=== PATIENT | female | born 1950 | race Caucasian/White ===

== ENCOUNTER → 2016-11-01 | Outpatient (CLI) | payer MEDICARE, BC ==
[2016-11-01 16:00] LABS: Basophils # (A) 0.1 k/uL (0-0.2); Basophils % (A) 1 %; CH 28.8; CHCM 32.1; Eosinophils # (A) 0.2 k/uL (0-0.7); Eosinophils % (A) 2 %; HCT 44.6 % (34.0-46.0); HDW 2.26; HGB 14.3 gm/dL (11.4-16.0); Luc # (Auto) 0.17; Luc % (Auto) 2; Lymphocytes # (A) 1.6 k/uL (1.0-4.8); Lymphocytes % (A) 19 %; MCH 28.8 pg (25.0-35.0); Mean Platelet Volume 7.1; Monocytes # (A) 0.4 k/uL (0-1.0); Monocytes % (A) 5 %; Neutrophils # (A) 6.3 k/uL (1.3-7.7); Neutrophils % (A) 72 %; RBC 4.95 m/uL (3.80-5.40); RDW 13.1 % (11.5-15.5); WBC 8.7 k/uL (3.8-10.6); WBC (Perox) 8.69
[2016-11-01 16:03] LABS: Prothrombin Time 10.4 sec (9.0-12.0)
[2016-11-01 16:04] LABS: Potassium 4.4 mmol/L (3.5-5.1)
== END | disposition home or self-care (01) ==
LOC: LABPAT 14:17
PROVIDERS: ATTEND Orthopaedic Surgery
DX: Z01.812 Encounter for preprocedural laboratory examination (principal); Z79.01 Long term (current) use of anticoagulants
CPT/HCPCS: 80051; 85025; 85610; 85730; 86850; 86900; 86901; 87070

== ENCOUNTER 2016-11-07 08:31 | Inpatient (IN) | payer MEDICARE, BC ==
[2016-10-31 16:53] VITALS: BMI 28.0
--- NOTE | 2016-11-06 18:08 | HP ---
DATE OF ADMISSION: REASON FOR ADMISSION: Surgery is scheduled for 11/07/2016 Nicolasa Hernandez is a 65-year-old patient seen with symptomatic right hip osteoarthritis. After having treatment options discussed, she elected to proceed with direct anterior right total hip arthroplasty. Consent was obtained. Medical clearance provided Dr. Taylor. Past medical history is hypothyroidism. Past surgical history is tonsillectomy, thyroidectomy. Daily medications: 1. Levothyroxine. 2. Motrin. ALLERGIES: PENICILLIN. SOCIAL HISTORY: Patient denies tobacco use. Physical evaluation of the right hip there is a limited range of motion with severe pain, diffuse tenderness diffuse weakness, positive hip impingement sign. Straight-leg raise is negative. Distal neurovascular exam is intact. Radiographs of the right hip reveal severe osteoarthritis. IMPRESSION: Right hip osteoarthritis. PLAN: Direct anterior right total hip arthroplasty.
[~2016-11-07 08:31] MED LIST: ACETAMINOPHEN TAB 500 MG TAB PO ONE; CLINDAMYCIN 900 MG in DEXTROSE 5% IN WATER 50 ML IVPB ONE; DEXAMETHASONE SOD PHOSPHATE 10 MG/ML 1 ML VIAL IV ONE; HYDROmorphone 1 MG/ML 1 ML SYRINGE IVP PRN; MELOXICAM 7.5 MG TAB PO ONE; MIDAZOLAM 2 MG/2 ML VIAL IV PRN; ONDANSETRON 4 MG/2 ML VIAL IVP ONE; TRANEXAMIC ACID 1,000 MG in SODIUM CHLORIDE 0.9% 100 ML IVPB ONE
[2016-11-07] MEDS: LACTATED RINGERS 1,000 ML IV SCH ×2 (09:16→17:36)
[2016-11-07] MEDS ORDERED: LIDOCAINE 1% 20 ML VIAL (10MG/ML) FOR IV START INTRADERMA ONE (09:16)
[2016-11-07] MEDS ORDERED: ROPIVACAINE 246.25 MG, EPINEPHrine 0.5 MG, KETOROLAC 30 MG, cloNIDine HCL/PF 80 MCG, WA... MISCELLANE ONE ×5 (09:47)
[2016-11-07] MEDS ORDERED: MIDAZOLAM 2 MG/2 ML VIAL ONE (10:15)
[2016-11-07] MEDS ORDERED: fentaNYL (PF) 50 MCG/ML 2 ML AMP ONE (10:15)
[2016-11-07] MEDS ORDERED: SODIUM CHLORIDE 0.9% 100 ML BAG ONE (10:15)
[2016-11-07] MEDS ORDERED: TRANEXAMIC ACID 1,000 MG/10 ML VIAL ONE (10:15)
[2016-11-07] MEDS ORDERED: PROPOFOL 10 MG/ML 20 ML VIAL IV ONE (10:15)
[2016-11-07] MEDS ORDERED: CLINDAMYCIN 1,800 MG in SODIUM CHLORIDE 0.9% IRRIGATIO 3,000 ML IRRIGATION ONE (10:42)
[2016-11-07] MEDS ORDERED: LACTATED RINGERS 1,000 ML IV ONE (10:45)
--- NOTE | 2016-11-07 12:42 | FL ---
EXAMINATION TYPE: FL guidance operating room DATE OF EXAM: 11/07/2016 12:38 PM HISTORY: Flouroscopy time 51 seconds of fluoroscopy provided. IMPRESSION: 1. Fluoroscopy time.
--- NOTE | 2016-11-07 12:42 | XR ---
EXAMINATION TYPE: XR Hip Limited RT DATE OF EXAM: 11/07/2016 12:38 PM COMPARISON: NONE HISTORY: Postsurgical change TECHNIQUE: One view submitted. FINDINGS: There is a prosthetic hip in near anatomic alignment. There is soft tissue edema and emphysema. IMPRESSION: 1. Postoperative change. Appears in near-anatomic alignment.
--- NOTE | 2016-11-07 12:49 | P.OP ---
Date of Procedure: 11/07/16 Preoperative Diagnosis: Right hip osteoarthritis Postoperative Diagnosis: Right hip osteoarthritis Procedure(s) Performed: Direct anterior right total hip arthroplasty Implants: 1. Depuy Corail KA size 15 cementless femoral stem with collar 2. Depuy pinnacle 60 mm acetabular shell 3. Depuy pinnacle polyethylene acetabular liner +4 10 36 mm ID 60 mm OD 4. Biolox delta ceramic femoral head +8.5 36 mm 5. 2-6.5x20 mm cancellous bone screws Anesthesia: local, spinal Surgeon: Phi Monte Watch Leader #1: Arnaldo Ashraf Estimated Blood Loss (ml): 250 Pathology: other (Femoral head) Condition: stable Disposition: PACU Indications for Procedure: 66-year-old patient seen with symptomatic right hip osteoarthritis. After having treatment options discussed, she elected to proceed with total hip arthroplasty. Operative Findings: See description of procedure Description of Procedure: The patient was taken to the operative suite. Patient underwent a spinal anesthetic by the department of anesthesia. Patient was then transferred to the [place] table. Patient was given preoperative IV antibiotics and TXA. Both lower extremities were placed in standard leg spars. The hip was then prepped and draped in the normal sterile orthopedic fashion. A standard anterior incision was made beginning 3 cm lateral and 1 cm distal to the ASIS extending 10 cm. Dissection was then carried down through the subcutaneous soft tissues down to the fascia overlying the tensor fascia chrystal. An incision was now made through the fascia. Careful dissection was taken down exposing the tensor fascia chrystal muscle. A Cobra retractor was now placed along the medial femoral neck and a second one along the lateral femoral neck. The venous circumflex vessels were now identified, cauterized and clipped. We identified the anterior hip capsule. An incision was made through the hip capsule along the lateral border. Tag sutures were then placed along the anterior capsule and lateral capsule. We then performed a capsulotomy. Retractors were now placed around the femoral neck itself. A Cobra retractor was now placed along the anterior acetabulum. Good exposure was now noted of the femoral head/neck complex. Residual labrum was debrided out. We placed the extremity into 3 turns of fine traction. We were then able to introduce a skid in between the femoral head and acetabulum. A placed a awl into the femoral head. We took 2 turns of traction off the extremity. Rotation was now released. The femoral head was then dislocated without difficulty. Additional releasing was performed of the capsule. The head was then reduced. All traction was released. A femoral neck cut was now made with a sagittal saw. It was completed with an osteotome at the lateral neck area. The femoral head was now removed without difficulty. There was advanced osteoarthritis of both femoral head and acetabulum. The extremity was now rotated to 60 of external rotation. It was locked in position. Residual labrum was now debrided out. Serial reaming was performed of the acetabulum. Once we reached the appropriate size and a trial was position and fit nicely. The appropriate size was now chosen opened and made available. The wound was irrigated with pulse lavage mechanical irrigation. It was introduced into the acetabulum without difficulty. The C-arm/fluoroscopy was now brought into the operative field. We made sure we had a true AP pelvic view. We now under direct C-arm/ fluoroscopy introduced into the acetabular component with appropriate version and inclination. It was well seated and stable. The C-arm was pulled back. An appropriate liner was introduced and clicked into position. It was felt to be stable. At this point retractors were removed. The extremity was now placed into 125 external rotation with no traction. The leg was now dropped to the ground and adducted. Appropriate retractors were now positioned along the proximal femur. We also placed our femoral look into position. Additional capsular releasing was performed to gain access to the proximal femur. We now used a box osteotome. A canal finder was now utilized. Serial broaching was now performed until we reached the appropriate size with good overall rotational stability. Appropriate calcar planing was performed. A trial head/ neck was placed into position. The hip was now reduced. The C-arm/fluoroscopy was brought back into the operative field. A spot film was obtained of the nonoperative hip. A spot film was obtained of the trial components. There was some diminished offset of the prosthesis. At this point the trial components were removed. We gained visualization of the acetabulum and removed our liner. I replaced the liner with a +4 10 offset. At this point trial stem was repaired as additional as well as the trial head and the hip was again reduced. We obtained the C-arm and image. Overlays were performed, we noted good overall alignment and positioning for determining leg length. The C-arm/ fluoroscopy was pulled back. Retractors were repositioned and the hip was dislocated. The leg was again taken down to the ground and adducted. Appropriate retractors were repositioned as well as the femoral hook. All trial components were removed. The wound was irrigated with pulse lavage mechanical irrigation. The deep soft tissues were infiltrated with local analgesic. The femoral implant was opened along with the femoral head. The femoral implant was introduced with good purchase and fixation noted. The femoral head was introduced with good positioning and fixation noted. Retractors were now removed. The hip was now reduced. There appeared be good positioning of the hip. A spot film was obtained to document that. The superficial soft tissues were infiltrated with local analgesic. Bipolar cautery had been utilized intermittently through the procedure for hemostasis. The wound was irrigated copiously with pulse lavage mechanical irrigation. The fascia was repaired with Vicryl suture. The subcutaneous soft tissues were repaired in layers with Vicryl suture. The skin was approximated with pernio/ Dermabond. Sterile dressings were applied. Patient was then awakened, transferred to a bed and taken to recovery in stable condition. Puneet LAWSON assisted with the procedure.
[2016-11-07] MEDS ORDERED: HYDROcodone/APAP 10-325MG 1 EACH TAB PO PRN ×2 (12:50)
[2016-11-07] MEDS ORDERED: HYDROmorphone 1 MG/ML 1 ML SYRINGE IVP PRN ×3 (12:50)
[2016-11-07] MEDS ORDERED: ONDANSETRON 4 MG/2 ML VIAL IVP PRN (12:50)
[2016-11-07] MEDS ORDERED: NALOXONE 0.4 MG/ML 1 ML VIAL IV PRN (12:50)
[2016-11-07] MEDS ORDERED: TEMAZEPAM 15 MG CAP PO PRN (12:50)
[2016-11-07] MEDS ORDERED: hydrOXYzine PAMOATE 25 MG CAP PO PRN (12:50)
[2016-11-07] MEDS ORDERED: ALBUTEROL NEBULIZED 2.5 MG/3 ML INHALATION PRN (14:50)
[2016-11-07] MEDS ORDERED: MONTELUKAST 10 MG TAB PO PRN (14:50)
[2016-11-07] MEDS ORDERED: BUDESONIDE 0.5 MG/2 ML NEBU INHALATION PRN (14:50)
--- NOTE | 2016-11-07 15:12 | P.CONS ---
History of Present Illness - Reason for Consult Consult date: 11/07/16 Medical management Requesting physician: Phi Monte - Chief Complaint Status post right total hip arthroplasty - History of Present Illness This is a 66-year-old female, patient of Dr. Taylor. She has known right hip osteoarthritis, seasonal asthma and hypothyroidism secondary to thyroid cancer requiring a thyroidectomy. Patient presents to the hospital today to undergo a right total hip arthroplasty. She is postop day #0. Tolerated surgery well. Estimated blood loss 250 mL. Patient has no complaints. Pain is controlled. Denies any chest pain, shortness of breath, nausea or vomiting, bowel movement changes or urinary symptoms. She does complain of some mild wheezing and feeling a little raspy due to her asthma. She has been using her nebulizer machine throughout the day since coming back from [place]. She usually only takes the albuterol and Pulmicort nebulizer treatments as needed. She denies any cough fever or chills or sweats. Review of Systems Please refer to HPI otherwise unremarkable Past Medical History Past Medical History: Asthma, Cancer, Osteoarthritis (OA), Skin Disorder, Thyroid Disorder Additional Past Medical History / Comment(s): OCC Excema. Hx Thyroid Cancer. Using a walker, Has a cane. History of Any Multi-Drug Resistant Organisms: None Reported Past Surgical History: Joint Replacement, Tonsillectomy Additional Past Surgical History / Comment(s): 05/02/16 Total L Hip Arthroplasty. Thyroidectomy Past Anesthesia/Blood Transfusion Reactions: No Reported Reaction, Family History of Problems w/ Anesthesia Additional Past Anesthesia/Blood Transfusion Reaction / Comm: FATHER - POSS PONV. Past Psychological History: No Psychological Hx Reported Additional Psychological History / Comment(s): Pt resides alone. She uses a walker to ambulate. She has not been driving recently. Smoking Status: Former smoker Past Alcohol Use History: Occasional Additional Past Alcohol Use History / Comment(s): Quit smoking 35 yrs ago, smoked for 16 yrs- 2 PPD Past Drug Use History: None Reported - Past Family History Sister(s) Family Medical History: Cancer Father Family Medical History: Cancer Medications and Allergies Home Medications Medication Instructions Recorded Confirmed Type Cetirizine HCl [Zyrtec] 10 mg PO DAILY 04/11/16 11/07/16 History Levothyroxine Sodium [Synthroid] 125 mcg PO DAILY 04/11/16 11/07/16 History Acetaminophen Tab [Tylenol Tab] 1,000 mg PO Q6H PRN 04/26/16 11/07/16 History Fluticasone/Salmeterol [Advair 1 puff INHALATION RT-BID PRN 04/26/16 11/07/16 History 250-50 Diskus] Albuterol Nebulized [Ventolin 2.5 mg INHALATION RT-BID PRN 10/31/16 11/07/16 History Nebulized] Budesonide [Pulmicort] 0.5 mg INHALATION RT-BID PRN 10/31/16 11/07/16 History EPINEPHrine (Auto Inject) [Epipen] 0.3 mg IM ONCE PRN 10/31/16 11/07/16 History Ibuprofen [Motrin] 600 mg PO Q6HR PRN 10/31/16 11/07/16 History Montelukast [Singulair] 10 mg PO DAILY PRN 10/31/16 11/07/16 History Tiotropium 18 Mcg/Puff [Spiriva] 1 cap INHALATION RT-DAILY 10/31/16 11/07/16 History diphenhydrAMINE [Benadryl] 25 - 50 mg PO DIRECTED PRN 10/31/16 11/07/16 History Allergies Allergy/AdvReac Type Severity Reaction Status Date / Time Penicillins Allergy SOB,hives Verified 11/07/16 09:04 BEE STING Allergy Anaphylaxis Uncoded 11/07/16 09:04 Physical Exam Vitals: Vital Signs Temp Pulse Resp BP Pulse Ox 11/07/16 14:01 68 16 112/64 97 11/07/16 13:46 70 16 108/65 99 11/07/16 13:33 69 16 107/65 98 11/07/16 13:15 73 16 108/66 99 11/07/16 13:08 97.0 F L 79 14 104/60 94 L 11/07/16 08:47 98.2 F 73 16 114/63 97 Intake and Output 11/07/16 11/07/16 11/07/16 06:59 14:59 22:59 Intake Total 1807 Output Total 250 Balance 1557 Intake: IV 1807 Output: Urine 150 Estimated Blood Loss 100 Head normocephalic Neck supple Lungs faint wheeze on the left with a coarse breath sound improvement with cough Heart regular rate and rhythm S1-S2, no rub or gallop Abdomen is soft nontender nondistended positive bowel sounds no hepatosplenomegaly Extremities no edema. Right hip dressing clean dry and intact. +2 dorsalis pedis pulse Neuro alert and orientated to 3 Assessment and Plan Plan: 1. Osteoarthritis of the right hip status post right total hip arthroplasty. Postop day #0. Estimated blood loss 250 mL. Continue pain control with Olar and Dilaudid as needed. Continue DVT prophylaxis with subcu Lovenox 2. Seasonal asthma: Patient does have some mild wheezing. We'll resume her albuterol and Pulmicort nebulizer treatments. We'll change them from as needed to scheduled. Check chest x-ray 3. Hypothyroidism with known history of thyroid cancer status post thyroidectomy. Continue Synthroid GI prophylaxis Pepcid and DVT prophylaxis Lovenox Check CBC and CMP Thank you for this consultation. We will continue to follow along with you. Time with Patient: Greater than 30 (Greater than 50% of the total time spent in counseling and coordination of care.I performed an examination of the patient and discussed their management with the physician Headrig Sawyer. I have reviewed the Physician Headrig Sawyer's notes and agree with the documented findings and plan of care)
[2016-11-07 15:56] LABS: Basophils % (A) 0 %; CH 28.8; CHCM 32.7; Eosinophils % (A) 0 %; HCT 40.6 % (34.0-46.0); HDW 2.44; HGB 13.8 gm/dL (11.4-16.0); Luc # (Auto) 0.04; Luc % (Auto) 0; Lymphocytes # (A) 0.4 k/uL (1.0-4.8); Lymphocytes % (A) 3 %; MCHC 33.9 g/dL (31.0-37.0); MCV 88.5 fL (80.0-100.0); Mean Platelet Volume 6.8; Monocytes # (A) 0.2 k/uL (0-1.0); Monocytes % (A) 2 %; Neutrophils # (A) 12.7 k/uL (1.3-7.7); Neutrophils % (A) 95 %; RBC 4.59 m/uL (3.80-5.40); RDW 12.6 % (11.5-15.5); WBC 13.4 k/uL (3.8-10.6); WBC (Perox) 14.01
[2016-11-07 16:05] LABS: ALT 38 U/L (9-52); AST 36 U/L (14-36); Alkaline Phosphatase 102 U/L (38-126); Anion Gap 5 mmol/L; Blood Urea Nitrogen 15 mg/dL (7-17); Calcium 8.6 mg/dL (8.4-10.2); Carbon Dioxide 30 mmol/L (22-30); Chloride 103 mmol/L (98-107); Glucose 184 mg/dL (74-99); Non-African American GFR(MDRD) >60 (>60 ml/min/1.73 sqM); Sodium 138 mmol/L (137-145); Total Bilirubin 0.9 mg/dL (0.2-1.3); Total Protein 5.9 g/dL (6.3-8.2)
--- NOTE | 2016-11-07 16:30 | P.DS ---
Providers Date of admission: 11/07/16 08:31 Expected date of discharge: 11/08/16 Attending physician: Phi Monte Consults: 11/07/16 12:50 Consult Physician Routine Consulting Provider: Chito Hernandez Consult Reason/Comments: Medical management Do you want consulting provider notified?: Yes Primary care physician: Stated None Hospital Course: Date of admission: 11/07/2016 Date of discharge: 11/08/2016 Admission diagnosis: Status post direct anterior right total hip arthroplasty Discharge diagnosis: Same Attending physician: Dr. Monte Surgical procedures: Direct anterior right total hip arthroplasty Brief history: Patient is a 66-year-old female with a history of progressive primary right hip osteoarthritis. At this point patient has failed conservative treatment measures and has opted to proceed with a elective right total hip arthroplasty. Hospital course: Details of patient's surgery can be found in operative report. Patient tolerated the procedure well and was subsequently transported to orthopedic floor. Patient's orthopeidc and medical care was provided daily. Patient had daily laboratory tests performed for evaluation of overall blood counts. Patient had daily physical therapy to include strengthening range of motion as well as education with walker ambulation. Patient was treated with Lovenox for their postoperative DVT prophylaxis during their inpatient stay. Patient was noted to have a relatively uneventful postoperative course. Patient reported satisfactory pain control with oral pain medications by postoperative day 0. Patient showed satisfactory progress with physical therapy. Patient moved steadily through the program and had no difficulty meeting the goals by postoperative day 1. Given patient's otherwise satisfactory course and having met physical therapy goals, plan is to discharge patient home on postoperative day 1. Discharge condition/disposition: Patient will be discharged home in stable condition. Discharge medications: Instructions are given on resumption of patient's normal daily medications per primary care recommendation, in addition patient will be prescribed [place] 7.5 mg/325 mg, tramadol 50 mg, Colace 100 mg, Pepcid 20 mg, aspirin. Discharge instructions: 1. Wound care and infection precautions, keep incision dry and covered while showering, no lotions, creams, moisturizers. No soaking, tubs, pools, hottubs. Do not scrub over the incision. 2. Weight-bear as tolerated with walker / cane until follow-up. 3. Ice and elevate when necessary. Do not exceed 20 minutes per hour with ice pack. 4. Utilize compression sleeve until seen at first follow up appointment. 5. Visiting nursing care. 6. Home physical therapy. 7. Pain meds and anticoagulants per prescription. 8. Pain medication has potential to cause constipation. Increase oral fluid and fiber intake. Contact primary care provider if you have not had a bowel movement within 48 hours after discharge 9. No anti-inflammatory medication until discussed at first post operative visit, this including Motrin, Aleve, Mobic, Diclofenac. 10. Follow up in office at 2 weeks postop with Puneet Ashraf PA-C 11. Follow up with your primary care doctor 7-10 days after discharge. 12. Contact [facility] with any questions, . Procedures: Right total hip arthroplasty Patient Condition at Discharge: Good Plan - Discharge Summary New Discharge Prescriptions: Aspirin 325 mg PO BID #60 tab Docusate [Colace] 100 mg PO DAILY #30 capsule Famotidine [Pepcid] 20 mg PO DAILY #30 tablet HYDROcodone/APAP 7.5-325MG [[place] 7.5] 1 - 2 each PO Q6HR PRN #40 tab PRN Reason: Pain traMADol HCl [Ultram] 50 mg PO Q6H PRN #40 tab PRN Reason: Pain Discharge Medication List Cetirizine HCl [Zyrtec] 10 mg PO DAILY 04/11/16 [History] Levothyroxine Sodium [Synthroid] 125 mcg PO DAILY 04/11/16 [History] Acetaminophen Tab [Tylenol Tab] 1,000 mg PO Q6H PRN 04/26/16 [History] Fluticasone/Salmeterol [Advair 250-50 Diskus] 1 puff INHALATION RT-BID 04/26/16 [History] Albuterol Nebulized [Ventolin Nebulized] 2.5 mg INHALATION RT-BID PRN 10/31/16 [ History] Budesonide [Pulmicort] 0.5 mg INHALATION RT-BID 10/31/16 [History] EPINEPHrine (Auto Inject) [Epipen] 0.3 mg IM ONCE PRN 10/31/16 [History] Montelukast [Singulair] 10 mg PO DAILY PRN 10/31/16 [History] Tiotropium 18 Mcg/Puff [Spiriva] 1 cap INHALATION RT-DAILY 10/31/16 [History] diphenhydrAMINE [Benadryl] 25 - 50 mg PO Q6H PRN 10/31/16 [History] Aspirin 325 mg PO BID #60 tab 11/08/16 [Rx] Docusate [Colace] 100 mg PO DAILY #30 capsule 11/08/16 [Rx] Famotidine [Pepcid] 20 mg PO DAILY #30 tablet 11/08/16 [Rx] HYDROcodone/APAP 7.5-325MG [[place] 7.5] 1 - 2 each PO Q6HR PRN #40 tab 11/08/16 [ Rx] traMADol HCl [Ultram] 50 mg PO Q6H PRN #40 tab 11/08/16 [Rx] Follow up Appointment(s)/Referral(s): Arnaldo Ashraf PAC [PHYSICIAN SAFETY AND HEALTH MANAGER] - 11/23/16 1:50 pm Activity/Diet/Wound Care/Special Instructions: Orthopedic Discharge Instructions: 1. Wound care and infection precautions, keep incision dry and covered while showering, no lotions, creams, moisturizers. No soaking, pools, hot tubs. Do not scrub over incision. 2. Weight-bear as tolerated with walker / cane until follow-up. 3. Ice and elevate when necessary. Do not exceed 20 minutes per hour with ice pack. 4. Utilize compression sleeve until seen at first follow up appointment. 5. Visiting nursing care. 6. Home physical therapy. 7. Pain meds and anticoagulants per prescription. 8. Pain medication has potential to cause constipation. Increase oral fluid and fiber intake. Contact primary care provider if you have not had a bowel movement within 48 hours after discharge. 9. No anti-inflammatory medication until discussed at first post operative visit, this including Motrin, Aleve, Mobic, Diclofenac. 10. Follow up in office at 2 weeks postop with Puneet Ashraf PA-C 11. Follow up with your primary care doctor 7-10 days after discharge. 12. Contact [facility] with any questions, . Discharge Disposition: HOME WITH HOME HEALTH SERVICES
[2016-11-07] MEDS: ALBUTEROL NEBULIZED 2.5 MG/3 ML INHALATION SCH ×2 (17:00→19:57)
--- NOTE | 2016-11-07 17:04 | XR ---
EXAMINATION TYPE: XR chest 1V portable DATE OF EXAM: 11/07/2016 4:57 PM Comparison: 05/02/2016 Clinical History: 66-year-old female with wheezing. Hip replacement earlier today. Findings: Heart is normal size. Atherosclerotic arch calcifications. Mild diffuse interstitial prominence, unch anged. No consolidation or pleural effusion. Impression: Chronic changes, possible chronic bronchitis/asthma. Otherwise, no acute process seen.
[2016-11-07] MEDS: traMADol 50 MG TAB PO SCH ×3 (17:50→22:20)
[2016-11-07] MEDS: CLINDAMYCIN 900 MG in DEXTROSE 5% IN WATER 50 ML IVPB SCH ×4 (17:50→23:33)
[2016-11-07] MEDS: BUDESONIDE 0.5 MG/2 ML NEBU INHALATION SCH (19:58)
[2016-11-07] MEDS: SYMBICORT 80-4.5 MCG INHALER INHALATION SCH (19:58)
[2016-11-07] MEDS ORDERED: SENNOSIDES-DOCUSATE SODIUM 1 EACH TAB PO SCH (21:00)
[2016-11-08 03:55] VITALS: RESP 16
[2016-11-08] MEDS: LACTATED RINGERS 1,000 ML IV SCH ×2 (04:21→07:33)
[2016-11-08] MEDS ORDERED: LEVOTHYROXINE 125 MCG TAB PO SCH (06:30)
[2016-11-08 07:21] LABS: Basophils % (A) 0 %; CH 28.9; CHCM 32.3; Eosinophils % (A) 0 %; HCT 35.3 % (34.0-46.0); HDW 2.23; HGB 11.2 gm/dL (11.4-16.0); Luc # (Auto) 0.14; Luc % (Auto) 1; Lymphocytes # (A) 1.1 k/uL (1.0-4.8); Lymphocytes % (A) 12 %; MCH 28.7 pg (25.0-35.0); MCHC 31.8 g/dL (31.0-37.0); Mean Platelet Volume 7.1; Monocytes # (A) 0.5 k/uL (0-1.0); Monocytes % (A) 5 %; Neutrophils # (A) 8.1 k/uL (1.3-7.7); Neutrophils % (A) 82 %; RBC 3.92 m/uL (3.80-5.40); RDW 12.9 % (11.5-15.5); WBC 9.9 k/uL (3.8-10.6)
[2016-11-08 07:48] LABS: ALT 40 U/L (9-52); AST 45 U/L (14-36); Alkaline Phosphatase 83 U/L (38-126); Anion Gap 4 mmol/L; Blood Urea Nitrogen 15 mg/dL (7-17); Calcium 8.4 mg/dL (8.4-10.2); Carbon Dioxide 28 mmol/L (22-30); Chloride 101 mmol/L (98-107); Glucose 113 mg/dL (74-99); Non-African American GFR(MDRD) >60 (>60 ml/min/1.73 sqM); Potassium 4.2 mmol/L (3.5-5.1); Sodium 133 mmol/L (137-145); Total Bilirubin 1.1 mg/dL (0.2-1.3); Total Protein 5.3 g/dL (6.3-8.2)
[2016-11-08 07:50] VITALS: BP 98/56; TEMP 99.4
[2016-11-08] MEDS ORDERED: TIOTROPIUM 18 MCG/PUFF INHALER INHALATION SCH (08:00)
[2016-11-08] MEDS: BUDESONIDE 0.5 MG/2 ML NEBU INHALATION SCH (08:21)
[2016-11-08] MEDS: ALBUTEROL NEBULIZED 2.5 MG/3 ML INHALATION SCH ×2 (08:21→11:23)
[2016-11-08] MEDS: SYMBICORT 80-4.5 MCG INHALER INHALATION SCH (08:21)
[2016-11-08] MEDS ORDERED: LORATADINE 10 MG TAB PO SCH (09:00)
[2016-11-08] MEDS ORDERED: FAMOTIDINE 20 MG TAB PO SCH (09:00)
[2016-11-08] MEDS ORDERED: MELOXICAM 7.5 MG TAB PO SCH (09:00)
[2016-11-08] MEDS ORDERED: MONTELUKAST 10 MG TAB PO SCH (09:00)
[2016-11-08] MEDS ORDERED: ENOXAPARIN 40 MG/0.4 ML SYRINGE SQ SCH (09:00)
[2016-11-08] MEDS: traMADol 50 MG TAB PO SCH ×2 (09:44→13:25)
--- NOTE | 2016-11-08 10:44 | P.PN ---
Subjective Principal diagnosis: Status post right total hip arthroplasty Patient seen today resting in her hospital chair, she appears her comfortable. Her pain is well-controlled at this time. She is ambulating well with therapy, urinary cath was discontinued. She denies any headaches, lightheadedness, chest pain, shortness of breath, fever chills. Objective - Vital Signs Vital signs: Vital Signs Temp 99.4 F 11/08/16 07:49 Pulse 84 11/08/16 08:35 Resp 16 11/08/16 08:00 BP 98/56 11/08/16 07:49 Pulse Ox 94 L 11/08/16 07:49 Intake & Output 11/07/16 11/08/16 11/08/16 18:59 06:59 18:59 Intake Total 1807 1200 250 Output Total 250 600 Balance 1557 600 250 Weight 86.183 kg Intake: IV 1807 Intake, IV Titration 800 Amount Lactated Ringers 1,000 ml 800 @ 80 mls/hr IV .[id number] ERMA Rx#:[id number] Oral 400 250 Output: Urine 150 600 Estimated Blood Loss 100 Other: Voiding Method Indwelling Catheter - Exam Right lower extremity: Incision is clean, dry, and intact. Minimal ecchymosis and swelling present around the hip. Calf is soft, no tenderness with palpation. Plantar flexion, dorsiflexion, EHL, FHL are intact. Sensory exam to light touch throughout the extremities intact, dorsal pedis pulses 2+. - Labs CBC & Chem 7: 11/08/16 06:39 11/08/16 06:39 Labs: Abnormal Lab Results - Last 24 Hours (Table) 11/07/16 11/07/16 11/08/16 Range/Units 15:41 15:41 06:39 WBC 13.4 H (3.8-10.6) k/uL Hgb 11.2 L (11.4-16.0) gm/dL Neutrophils # 12.7 H 8.1 H (1.3-7.7) k/uL Lymphocytes # 0.4 L (1.0-4.8) k/uL Sodium (137-145) mmol/L Glucose 184 H (74-99) mg/dL AST (14-36) U/L Total Protein 5.9 L (6.3-8.2) g/dL Albumin 3.3 L (3.5-5.0) g/dL 11/08/ Range/Units 06:39 WBC (3.8-10.6) k/uL Hgb (11.4-16.0) gm/dL Neutrophils # (1.3-7.7) k/uL Lymphocytes # (1.0-4.8) k/uL Sodium 133 L (137-145) mmol/L Glucose 113 H (74-99) mg/dL AST 45 H (14-36) U/L Total Protein 5.3 L (6.3-8.2) g/dL Albumin 2.9 L (3.5-5.0) g/dL Assessment and Plan Plan: Assessment: 1. Postop day #1 status post right total hip arthroplasty Plan: 1. Pain control, we'll discharge home on oral medication 2. GI and DVT prophylaxis, patient will be discharged home on aspirin 325 mg twice a day 3. Wound care was discussed with patient 4. Home therapy after discharge 5. Medical recommendations 6. Discharge planning: Patient will be discharged home today Time with Patient: Less than 30
[2016-11-08 11:24] VITALS: PULSE 80
[2016-11-08] MEDS ORDERED: MULTIVITAMINS, THERA 1 EACH TAB PO SCH (12:00)
--- NOTE | 2016-11-08 14:35 | P.PN ---
Subjective patient is doing fairly well today. She is looking forward to go home later on. Pain is well controlled. Objective - Vital Signs Vital signs: Vital Signs Temp 99.4 F 11/08/16 07:49 Pulse 80 11/08/16 11:34 Resp 16 11/08/16 08:00 BP 98/56 11/08/16 07:49 Pulse Ox 94 L 11/08/16 07:49 Intake & Output 11/07/16 11/08/16 11/08/16 18:59 06:59 18:59 Intake Total 1807 1200 500 Output Total 250 600 600 Balance 1557 600 -100 Weight 86.183 kg Intake: IV 1807 Intake, IV Titration 800 Amount Lactated Ringers 1,000 ml 800 @ 80 mls/hr IV .[id number] ERMA Rx#:[id number] Oral 400 500 Output: Urine 150 600 600 Estimated Blood Loss 100 Other: Voiding Method Indwelling Catheter - Exam General: The patient is awake and alert, in no distress Eye: there is normal conjunctiva bilaterally. Neck: The neck is supple, there is no JVD. Cardiovascular: Normal S1-S2, no S3-S4, no murmurs. Respiratory: Lungs clear to auscultation bilaterally Gastrointestinal: Abdomen is soft, nontender Musculoskeletal: There is no pedal edema. Neurological:. Speech is normal. Skin: Skin is warm and dry - Labs CBC & Chem 7: 11/08/16 06:39 11/08/16 06:39 Labs: Abnormal Lab Results - Last 24 Hours (Table) 11/07/16 11/07/16 11/08/16 Range/Units 15:41 15:41 06:39 WBC 13.4 H (3.8-10.6) k/uL Hgb 11.2 L (11.4-16.0) gm/dL Neutrophils # 12.7 H 8.1 H (1.3-7.7) k/uL Lymphocytes # 0.4 L (1.0-4.8) k/uL Sodium (137-145) mmol/L Glucose 184 H (74-99) mg/dL AST (14-36) U/L Total Protein 5.9 L (6.3-8.2) g/dL Albumin 3.3 L (3.5-5.0) g/dL 11/08/16 Range/Units 06:39 WBC (3.8-10.6) k/uL Hgb (11.4-16.0) gm/dL Neutrophils # (1.3-7.7) k/uL Lymphocytes # (1.0-4.8) k/uL Sodium 133 L (137-145) mmol/L Glucose 113 H (74-99) mg/dL AST 45 H (14-36) U/L Total Protein 5.3 L (6.3-8.2) g/dL Albumin 2.9 L (3.5-5.0) g/dL Assessment and Plan Plan: 1. Osteoarthritis of the right hip status post right total hip arthroplasty. Postop day #1. Estimated blood loss 250 mL. Continue pain control with Sumner and Dilaudid as needed. 2. mild intermittent asthma with no evidence of exacerbation 3. Hypothyroidism with known history of thyroid cancer status post thyroidectomy. Continue Synthroid patient is cleared for discharge home. Continue home medications
== END 2016-11-08 14:46 | disposition home health service (06) | DRG 470 ==
LOC: 2ORMAIN 08:31 → 3SUR 13:22
PROVIDERS: ADMIT Orthopaedic Surgery; ATTEND Orthopaedic Surgery
PROC: 0SR904A Replacement of Right Hip Joint with Ceramic on Polyethylene Synthetic Substitute, Uncemented, Open Approach (ICD-10-PCS; principal; 2016-11-07 10:10)
DX: M16.11 Unilateral primary osteoarthritis, right hip (principal); E89.0 Postprocedural hypothyroidism; Z85.850 Personal history of malignant neoplasm of thyroid; Z79.899 Other long term (current) drug therapy; Z87.891 Personal history of nicotine dependence; Z88.0 Allergy status to penicillin; J45.20 Mild intermittent asthma, uncomplicated
CPT/HCPCS: 71010; 73501; 80053; 85025; 86850; 86900; 86901; 88300; 94640

== ENCOUNTER → 2017-01-16 | Outpatient (CLI) | payer MEDICARE, BC ==
--- NOTE | 2017-01-16 11:38 | MR ---
EXAMINATION TYPE: MR knee RT wo con DATE OF EXAM: 01/16/2017 COMPARISON: NONE HISTORY: RT KNEE PAIN TECHNIQUE: Multiplanar, multisequence imaging of the right knee is performed without IV contrast. FINDINGS: There is a large area of marrow edema involving the distal diaphysis and medial portion of the distal femur. No definite fracture line. Patellar and quadriceps tendons are intact. There is thinning of the patellar cartilage and a trace a mount of fluid in the suprapatellar bursa. Anterior cruciate, posterior cruciate, medial collateral, and lateral collateral ligaments all are in tact. No sizable Brooks's cyst or popliteal fossa cyst. There is a chondral injury focally involving the articular medial and lateral femoral cartilage. Narr owing of the joint space along the medial compartment and patellofemoral compartment most typical of osteoarthritis. Medial meniscus is intact. Intrasubstance signal posterior horn of the lateral meniscus is noted. Per ipheral linear tear suspected. There is increased signal and edema along the posterior and medial margin of the vastus medialis musc le which is incompletely imaged by MRI of the knee. Findings are suggestive of a intramuscular strain . IMPRESSION: 1. Diffuse marrow edema involving the distal femur extending medially into the medial femoral condyle . No fracture line. Correlate for diffuse marrow edema or bone contusion. 2. Linear tear posterior horn lateral meniscus. 3. Osteoarthritis with chondromalacia as discussed above. 4. Vastus medialis muscular strain
== END | disposition home or self-care (01) ==
LOC: RADMRIMAIN 10:04
PROVIDERS: ATTEND Orthopaedic Surgery
DX: S83.281A Other tear of lateral meniscus, current injury, right knee, initial encounter (principal); M17.11 Unilateral primary osteoarthritis, right knee; M94.261 Chondromalacia, right knee; S76.811A Strain of other specified muscles, fascia and tendons at thigh level, right thigh, initial encounter

== ENCOUNTER 2017-08-08 06:29 | Day surgery (SDC) | payer MEDICARE, BC ==
[2017-08-08] MEDS ORDERED: LACTATED RINGERS 1,000 ML IV ONE (06:57)
[2017-08-08 07:14] VITALS: RESP 18; TEMP 98.2
[2017-08-08] MEDS ORDERED: ATROPINE SULFATE 0.4 MG/ML 1 ML VIAL IM STA (07:33)
[2017-08-08] MEDS ORDERED: LIDOCAINE 2% (PF) 20 MG/ML 10 ML AMP INHALATION STA (07:37)
[2017-08-08] MEDS ORDERED: PROPOFOL 10 MG/ML 20 ML VIAL IV ONE (07:42)
[2017-08-08] MEDS ORDERED: GLYCOPYRROLATE 0.2 MG/ML 2 ML VIAL ONE (07:42)
[2017-08-08] MEDS ORDERED: LIDOCAINE 1% INJ 10MG/ML (20 ML MDV) ONE (07:42)
[2017-08-08] MEDS ORDERED: fentaNYL (PF) 50 MCG/ML 2 ML AMP ONE (07:42)
[2017-08-08] MEDS ORDERED: LIDOCAINE 2% INJ 20 MG/ML INTRATRACH ONE (08:00)
[2017-08-08] MEDS ORDERED: LIDOCAINE 2% (PF) 20 MG/ML 2 ML AMP INHALATION ONE (08:30)
[2017-08-08 08:38] VITALS: BP 121/75
[2017-08-08 09:41] VITALS: PULSE 62
--- NOTE | 2017-08-08 15:25 | PCN ---
PROCEDURE NOTE PROCEDURE: Bronchoscopy, airway examination, BAL right middle lobe. PREOPERATIVE DIAGNOSIS: Asthma/bronchitis. POSTOPERATIVE DIAGNOSIS: Asthma/bronchitis. SPOKE MAKER provided conscious sedation with general anesthesia. There was informed consent. There was universal timeout. The procedure took place in room #3 [facility]. After the patient was adequately sedated, the bronchoscope was inserted through the right nostril. It passed through the right nasopharynx into the oropharynx. The hypopharynx was identified and tropicalized. Hypopharynx and the structures appeared normal including anterior commissure, true cords, false cords, arytenoids, piriform sinuses, right and left vallecula and epiglottis. After topicalization, the bronchoscope was placed through the glottic opening into the trachea. Trachea appeared normal. There was some collapsibility to the trachea. Tracheal kenya was sharp. The right and left mainstem were tropicalized. Right upper lobe and its 3 segments, right middle lobe and its 2 segments. right lower lobe and its 5 segments, left upper lobe proper and its 2 segments, the lingula and its 2 segments and left lower lobe and its 4 segments all had similar findings of diffuse moderate bronchitis. There was some airway erythema and hyperemia. The mucosa was somewhat friable. The blood vessels were slightly engorged. There were secretions \throughout. They were thin and frailly. There was some color to them. There was no dominant mass or tumor. The bronchoscope was then wedged into the right middle lobe. BAL took place. 30 mL was returned. Next, the other secretions were suctioned without difficulty. Finally, the bronchoscope was withdrawn. The patient will be recovered. There was no immediate complication. MMODL / IJN: [id number] /
== END 2017-08-08 08:56 | disposition home or self-care (01) ==
LOC: ORWHC2ENDO 06:29
PROVIDERS: ATTEND Internal Medicine Critical Care Medicine
DX: J40 Bronchitis, not specified as acute or chronic (principal); E07.9 Disorder of thyroid, unspecified; Z87.891 Personal history of nicotine dependence; Z79.52 Long term (current) use of systemic steroids; Z79.899 Other long term (current) drug therapy; Z80.0 Family history of malignant neoplasm of digestive organs; Z79.51 Long term (current) use of inhaled steroids; Z88.0 Allergy status to penicillin; Z91.030 Bee allergy status
CPT/HCPCS: 94640; 88108; 88305; 87070; 87205; 87116; 87102; 87206; 31624; J2001 ×3; J3010; J2704

== ENCOUNTER → 2018-06-25 | Outpatient (CLI) | payer MEDICARE, BC ==
--- NOTE | 2018-06-26 13:34 | MM ---
Reason for exam: screening (asymptomatic). Last mammogram was performed 1 year ago. History: Patient is postmenopausal, has history of other cancer at age 36, and is nulliparous. Took estrogen for 20 years beginning at age 42. Took progesterone for 20 years beginning at age 42. Physical Findings: A clinical breast exam by your physician is recommended on an annual basis and results should be correlated with mammographic findings. MG 3D Screening Mammo W/Cad Bilateral CC and MLO view(s) were taken. Prior study comparison: June 21, 2017, bilateral MG 3d screening mammo w/cad. July 01, 2016, bilateral MG 3d screening mammo w/cad. There are scattered fibroglandular densities. Finding: There are typically benign round, linear calcifications in both breasts. There is a chronic nodularity bilaterally upper outer quadrants. There is no new discrete abnormality. ASSESSMENT: Benign, BI-RAD 2 RECOMMENDATION: Routine screening mammogram of both breasts in 1 year.
== END | disposition home or self-care (01) ==
LOC: RADMAMWWP 11:13
PROVIDERS: ATTEND Family Medicine
DX: Z12.31 Encounter for screening mammogram for malignant neoplasm of breast (principal)
CPT/HCPCS: 77063; 77067

== ENCOUNTER → 2018-11-23 | Outpatient (CLI) | payer MEDICARE, BC ==
--- NOTE | 2018-11-23 10:40 | MR ---
EXAMINATION TYPE: MR shoulder RT wo con DATE OF EXAM: 11/23/2018 COMPARISON: None HISTORY: Pain in right shoulder TECHNIQUE: Multiplanar, multisequence imaging of the right shoulder is performed without contrast. FINDINGS: There is severe arthropathy of the glenohumeral joint hypertrophic spurring noted. There is a small joint effusion. Glenohumeral ligaments appear intact. Bicipital tendon is situated within the bicipital groove. There is fluid surrounding the biceps tendo n compatible tendinosis There is marked thickening involving the distal supraspinatus and infraspinatus tendons including th e conjoined supraspinatus infraspinatus tendon insertion compatible severe tendinosis and partial tea r. 6 mm partial through thickness tear involving the insertion anterior fibers supraspinatus tendon. No retraction. Small amount of fluid is seen in the subacromial subdeltoid bursa. Subscapularis tendon appears to be intact Labrum are somewhat limited in evaluation secondary to arthropathy of the glenohumeral joint. No abno rmalities seen within the suprascapular notch. There is severe hypertrophic change and arthropathy of the AC joint with mass effect upon the suprasp inatus tendon and muscle. IMPRESSION: 1. Impingement secondary to AC joint arthropathy resulting in diffuse tendinopathy of the distal supr a and infraspinatus tendons. Partial intrasubstance tears are noted involving both tendons. There is a 6 mm through thickness tear at the insertion anterior fibers supraspinatus tendon with no retractio n. 2. Bicipital tendinosis. 3. Glenohumeral joint arthropathy with small joint effusion.
== END | disposition home or self-care (01) ==
LOC: RADMRIMAIN 09:30
PROVIDERS: ATTEND Orthopaedic Surgery
DX: M19.011 Primary osteoarthritis, right shoulder (principal); M75.101 Unspecified rotator cuff tear or rupture of right shoulder, not specified as traumatic; S46.811A Strain of other muscles, fascia and tendons at shoulder and upper arm level, right arm, initial encounter; M67.813 Other specified disorders of tendon, right shoulder

== ENCOUNTER → 2019-03-28 | Outpatient (CLI) | payer MEDICARE, BC ==
[2019-03-28 10:51] LABS: Basophils # (A) 0.1 k/uL (0-0.2); Basophils % (A) 1 %; Eosinophils # (A) 0.2 k/uL (0-0.7); Eosinophils % (A) 2 %; HCT 43.7 % (34.0-46.0); HGB 14.6 gm/dL (11.4-16.0); Lymphocytes # (A) 1.7 k/uL (1.0-4.8); Lymphocytes % (A) 17 %; MCH 29.8 pg (25.0-35.0); MCHC 33.4 g/dL (31.0-37.0); MCV 89.2 fL (80.0-100.0); Monocytes # (A) 0.5 k/uL (0-1.0); Monocytes % (A) 5 %; Neutrophils # (A) 7.7 k/uL (1.3-7.7); Neutrophils % (A) 75 %; Platelet Count 257 k/uL (150-450); WBC 10.3 k/uL (3.8-10.6)
[2019-03-28 11:05] LABS: Potassium 4.3 mmol/L (3.5-5.1)
== END | disposition home or self-care (01) ==
LOC: LABPAT 10:09
PROVIDERS: ATTEND Orthopaedic Surgery
DX: Z01.812 Encounter for preprocedural laboratory examination (principal); Z01.818 Encounter for other preprocedural examination; M23.91 Unspecified internal derangement of right knee
CPT/HCPCS: 36415; 80051; 85025; 93005

== ENCOUNTER 2019-04-03 09:20 | Day surgery (SDC) | payer MEDICARE, BC ==
[2019-04-01 10:22] VITALS: BMI 27.8
--- NOTE | 2019-04-02 16:06 | HP ---
HISTORY AND PHYSICAL DATE OF SURGERY: 04/03/2019 Nicolasa Ly is a 68-year-old patient seen with progressive right knee pain. We discussed options. She elected to proceed with right knee arthroscopy. Consent was obtained. PAST MEDICAL HISTORY: Hypothyroidism. PAST SURGICAL HISTORY: 1. Tonsillectomy. 2. Thyroidectomy. 3. Total hip arthroplasty. DAILY MEDICATIONS: Levothyroxine. ALLERGIES: PENICILLIN. SOCIAL HISTORY: She denies current tobacco use. PHYSICAL EVALUATION OF THE RIGHT KNEE: Her range of motion is negative 2/3 to 125. Mild effusion. Tenderness, lateral joint line. Positive lateral Angelina's. Ligaments stable. Hip rotation without pain. Distal neurovascular exam intact. RADIOGRAPHS: Radiographs of the right knee revealed moderate osteoarthritis. Right knee MRI revealed lateral meniscal tear and osteoarthritic changes. IMPRESSION: 1. Internal derangement of right knee with lateral meniscal tear. 2. Hypothyroidism. PLAN: Right knee arthroscopy with partial meniscectomy and debridement. MMODL / IJN: [id number] /
[~2019-04-03 09:20] MED LIST changes: -ACETAMINOPHEN TAB 500 MG TAB PO ONE; +HYDROmorphone 0.5 MG/0.5 ML SYRINGE IVP PRN; -HYDROmorphone 1 MG/ML 1 ML SYRINGE IVP PRN; +LACTATED RINGERS 1,000 ML IV SCH; -MELOXICAM 7.5 MG TAB PO ONE; -MIDAZOLAM 2 MG/2 ML VIAL IV PRN; +ONDANSETRON 4 MG/2 ML VIAL IVP PRN; -TRANEXAMIC ACID 1,000 MG in SODIUM CHLORIDE 0.9% 100 ML IVPB ONE
[2019-04-03] MEDS ORDERED: LIDOCAINE 1% 20 ML VIAL (10MG/ML) FOR IV START INTRADERMA ONE (09:47)
[2019-04-03] MEDS ORDERED: LACTATED RINGERS 1,000 ML IV ONE (09:47)
[2019-04-03] MEDS ORDERED: MIDAZOLAM 2 MG/2 ML VIAL ONE (10:22)
[2019-04-03] MEDS ORDERED: PROPOFOL 10 MG/ML 20 ML VIAL IV ONE (10:22)
[2019-04-03] MEDS ORDERED: LIDOCAINE 1% INJ 10MG/ML (20 ML MDV) ONE (10:22)
[2019-04-03] MEDS ORDERED: fentaNYL (PF) 50 MCG/ML 2 ML AMP ONE (10:22)
[2019-04-03] MEDS ORDERED: BUPIVACAINE (PF) 0.25% 30 ML VIAL INTRAARTIC ONE (10:30)
[2019-04-03 11:23] VITALS: RESP 16; TEMP 97.5
--- NOTE | 2019-04-03 11:25 | P.OP ---
Date of Procedure: 04/03/19 Preoperative Diagnosis: Internal derangement right knee Postoperative Diagnosis: 1. Medial meniscal tear right knee 2. Grade 4 chondromalacia medial femoral condyle right knee 3. Grade 3 chondromalacia lateral femoral condyle right knee 4. Reactive synovitis medial, lateral and suprapatellar compartments right knee Procedure(s) Performed: 1. Arthroscopic partial medial meniscectomy right knee 2. Arthroscopic chondroplasty medial femoral condyle right knee 3. Arthroscopic microfracture medial femoral condyle right knee 4. Arthroscopic chondroplasty lateral femoral condyle right knee 5. Arthroscopic partial synovectomy medial, lateral and suprapatellar compartments right knee Anesthesia: JULIUSA, local Surgeon: Phi Monte Estimated Blood Loss (ml): 8 Pathology: none sent Condition: stable Disposition: PACU Indications for Procedure: 68-year-old patient seen with progressive right knee pain. We discussed treatment options. She elected to proceed with arthroscopy. Consent was obtained. Operative Findings: See description of procedure Description of Procedure: Patient was taken to the operative suite. Patient underwent a general anesthetic by the department of anesthesia. Patient was given preoperative antibiotics. The right lower extremity was placed in a well-padded arthroscopic leg grissom. The right leg was prepped and draped in the normal sterile orthopedic fashion. A lateral parapatellar and suprapatellar incision was made. Trochars were inserted. Arthroscopy was initiated. Suprapatellar pouch revealed diffuse thick reactive synovitis. The patellofemoral joint appeared to articulate congruently. There was grade 2 chondromalacia with no osteochondral tears present. The scope was guided into the medial gutter. No loose bodies or plica were identified. The scope was then guided into the medial compartment. A medial parapatellar incision was made. Trocar inserted followed by probe. There was a radial tear posterior horn medial meniscus. There was an area of grade 4 chondromalacia medial femoral condyle with osteochondral flap tears present. There was thick reactive synovitis anteriorly. I performed a partial medial meniscectomy getting down to stable meniscal tissue. I performed a chondroplasty of the medial femoral condyle down to stable osteochondral tissue. I performed a partial synovectomy decompressing the reactive synovitis. There was an area of exposed bone medial femoral condyle. I performed a microfracture to that area penetrating the bone with resultant bleeding at the microfracture site. The residual osteochondral surface was stable. The residual meniscus was stable. There was good decompression of the synovitis. Scope and probe were then guided into the intercondylar notch. Cruciates were identified, probed and found to be stable. The scope and probe were then guided into lateral compartment. Lateral meniscus reveals some mild fraying along the midbody area. There was an area of grade 3 chondral malacia lateral femoral condyle with osteochondral flap tears present. There was thick reactive synovitis anteriorly. I performed a chondroplasty of the lateral femoral condyle getting down to stable osteochondral tissue. I debrided that fraying of the lateral meniscus. I performed a partial synovectomy decompressing the thick reactive synovitis. The shaver was removed. The residual osteochondral surface was sta ble. There was good decompression of synovitis. The scope was in guided back into the suprapatellar compartment. I introduced a motorized shaver into the superapatellar compartment. I debrided some piecemeal fragments of meniscus I encountered. I performed a partial synovectomy decompressing reactive synovitis. The shaver was removed. I took one more look on the entire knee, no residual debris. Instruments were now removed from the joint. The joint was infiltrated with .25% Marcaine. Steri-Strips were applied to the portal sites. Sterile dressings were applied. The patient was placed into a MIGUEL hose. No tourniquet was utilized. The patient was awakened, transferred to a bed and taken to recovery stable satisfactory condition.
[2019-04-03 12:25] VITALS: BP 130/84; PULSE 77
== END 2019-04-03 12:45 | disposition home or self-care (01) ==
LOC: OR 09:20
PROVIDERS: ATTEND Orthopaedic Surgery
DX: S83.241A Other tear of medial meniscus, current injury, right knee, initial encounter (principal); M94.261 Chondromalacia, right knee; M65.861 Other synovitis and tenosynovitis, right lower leg; J45.909 Unspecified asthma, uncomplicated; L30.9 Dermatitis, unspecified; E89.0 Postprocedural hypothyroidism; M19.90 Unspecified osteoarthritis, unspecified site; Z88.0 Allergy status to penicillin; Z91.030 Bee allergy status; Z85.850 Personal history of malignant neoplasm of thyroid; Z79.890 Hormone replacement therapy; Z79.899 Other long term (current) drug therapy; Z90.89 Acquired absence of other organs; Z96.649 Presence of unspecified artificial hip joint; X58.XXXA Exposure to other specified factors, initial encounter
CPT/HCPCS: 29881; 29876; 29879; J2250; J1100; J2405; J2001; J3010; J2704

== ENCOUNTER → 2020-02-28 | Outpatient (CLI) | payer MEDICARE, BC ==
--- NOTE | 2020-03-03 06:17 | PE ---
EXAMINATION TYPE: PET CT fusion skull to thigh DATE OF EXAM: 02/28/2020 COMPARISON: Outside chest CT October 04, 2019 HISTORY: Solitary pulmonary nodule, abnormal CT. TECHNIQUE: Following the intravenous administration of 10.84 mCi of F-18 FDG, whole body images are performed from the skull base to the midthigh. Images are reviewed on the computer in the coronal, a xial, and sagittal planes. Reconstructed rotating images are created on independent workstation and reviewed on the computer. A noncontrast CT is performed in conjunction with the PET scan. SCAN: Initial Scan FINDINGS: SKULL BASE AND NECK: No areas of suspicious hypermetabolic uptake. CHEST, MEDIASTINUM, AND HILAR REGION: Scattered small nodules bilaterally are less well seen on this study versus outside CT. I do not have outside prior report for comparison. Largest nodule I can iden tify right lung base anteriorly measures 11 x 10 mm axial image 116. Additional smaller nodules for r eference measuring 8 x 5 mm right upper lung axial image 96. Additional 4 to 5 mm right lower lobe no dule axial image 108 noted. Some linear scarring in both lung bases has slight nodularity posterior r ight lung base though not progressed from prior study. No areas of suspicious hypermetabolic identifi ed throughout the thorax including at the areas of subcentimeter nodularity. ABDOMEN AND PELVIS: Few prominent scattered subcentimeter lymph nodes throughout the mesentery with m ild fat stranding, there is also slightly enlarged left mid abdominal lymph node measuring 2.3 x 1.0 cm with abnormal hypermetabolic uptake, max SUV is 5.16 on axial image 190. Just inferior posterior a nd to the left of this there is additional 2.0 x 1.0 cm abnormal hypermetabolic lymph node, max SUV i s 5.32 on axial image 193. No additional areas of abnormal hypermetabolic uptake. No adrenal masses. OSSEOUS STRUCTURES: No areas of abnormal hypermetabolic uptake. OTHER CT: Liver slightly low dense relative to spleen consistent with mild diffuse fatty infiltration . Moderate-sized fat-containing umbilical hernia. Metallic hardware from bilateral hip arthroplasty c auses streak artifact limiting evaluation of pelvic structures. Multilevel spurring in the spine. Gra de 1 anterolisthesis L4 on L5. Multilevel fairly moderate disc space narrowing in the lumbar spine an d multilevel vacuum disc phenomenon. IMPRESSION: 1. Scattered subcentimeter nodules throughout the lungs show no abnormal hypermetabolic uptake. No si gnificant interval progression noted. They are strongly favored benign. Precautionary follow up diagn ostic CT in 6 months time is advised to reassess and document stability. 2. Abnormal hypermetabolic left mid to lower abdominal mesenteric lymph nodes on perhaps background m ild bowen mesentery appearance. Neoplasm such as lymphoma or peritoneal metastatic disease needs to b e considered. CT guided sampling can be performed for tissue analysis if desired based on clinical co rrelation. Findings not consistent with lung primary.
== END | disposition home or self-care (01) ==
LOC: RADPETMAIN 10:30
PROVIDERS: ATTEND Internal Medicine Critical Care Medicine
DX: R91.8 Other nonspecific abnormal finding of lung field (principal)
CPT/HCPCS: 78815; A9552

== ENCOUNTER → 2020-04-10 | Outpatient (CLI) | payer BC, MEDICARE ==
--- NOTE | 2020-04-13 14:18 | MM ---
Reason for exam: screening (asymptomatic). Last mammogram was performed 1 year and 9 months ago. History: Patient is postmenopausal, has history of other cancer at age 36, and is nulliparous. Took estrogen for 20 years beginning at age 42. Took progesterone for 20 years beginning at age 42. Physical Findings: A clinical breast exam by your physician is recommended on an annual basis and results should be correlated with mammographic findings. MG 3D Screening Mammo W/Cad Bilateral CC and MLO view(s) were taken. Prior study comparison: June 25, 2018, bilateral MG 3d screening mammo w/cad. June 21, 2017, bilateral MG 3d screening mammo w/cad. There are scattered fibroglandular densities. Developing asymmetry right lower inner quadrant, additional evaluation. Focal asymmetry left breast, stable. This finding is changed when compared with previous exams. ASSESSMENT: Incomplete: need additional imaging evaluation, BI-RAD 0 RECOMMENDATION: Special view mammogram of the right breast. If lesion persists on supplemental views, image directed ultrasound is recommended. [facility] will attempt to contact patient to return for supplemental views and ultrasound if indicated.
== END | disposition home or self-care (01) ==
LOC: RADMAMWWP 11:24
PROVIDERS: ATTEND Family Medicine
DX: Z12.31 Encounter for screening mammogram for malignant neoplasm of breast (principal)
CPT/HCPCS: 77063; 77067

== ENCOUNTER → 2020-04-16 | Outpatient (CLI) | payer MEDICARE, BC ==
--- NOTE | 2020-04-16 09:22 | MM ---
Reason for exam: additional evaluation requested from abnormal screening. Last mammogram was performed less than 1 month ago. History: Patient is postmenopausal, has history of other cancer at age 36, and is nulliparous. Took estrogen for 20 years beginning at age 42. Took progesterone for 20 years beginning at age 42. Physical Findings: Nurse did not find any significant physical abnormalities on exam. MG 3D Follow Up No Charge RT Spot compression CC and spot compression MLO view(s) were taken of the right breast. Prior study comparison: April 10, 2020, bilateral MG 3d screening mammo w/cad. June 25, 2018, bilateral MG 3d screening mammo w/cad. There is no discrete abnormality including area of concern. Area consistent with a mole. These results were verbally communicated with the patient and result sheet given to the patient on 04/16/20. ASSESSMENT: Benign, BI-RAD 2 RECOMMENDATION: Return to routine screening mammogram schedule for both breasts.
== END | disposition home or self-care (01) ==
LOC: RADMAMWWP 08:10
PROVIDERS: ATTEND Family Medicine
DX: Z53.9 Procedure and treatment not carried out, unspecified reason (principal)

== ENCOUNTER → 2021-05-10 | Outpatient (CLI) | payer MEDICARE ==
--- NOTE | 2021-05-11 14:04 | MM ---
Reason for exam: screening (asymptomatic). Last mammogram was performed 1 year and 1 month ago. History: Patient is postmenopausal, has history of other cancer at age 36, and is nulliparous. Took estrogen for 20 years beginning at age 42. Took progesterone for 20 years beginning at age 42. Physical Findings: A clinical breast exam by your physician is recommended on an annual basis and results should be correlated with mammographic findings. MG 3D Screening Mammo W/Cad Bilateral CC and MLO view(s) were taken. Prior study comparison: April 16, 2020, right breast MG 3d follow up no charge RT. April 10, 2020, bilateral MG 3d screening mammo w/cad. June 25, 2018, bilateral MG 3d screening mammo w/cad. July 01, 2016, bilateral MG 3d screening mammo w/cad. There are scattered fibroglandular densities. There is chronic nodularity bilaterally. No significant changes when compared with prior studies. ASSESSMENT: Benign, BI-RAD 2 RECOMMENDATION: Routine screening mammogram of both breasts in 1 year.
== END | disposition home or self-care (01) ==
LOC: RADMAMWWP 10:57
PROVIDERS: ATTEND Family Medicine
DX: Z12.31 Encounter for screening mammogram for malignant neoplasm of breast (principal)
CPT/HCPCS: 77063; 77067

== ENCOUNTER → 2022-10-20 | Outpatient (CLI) | payer MEDICARE ==
--- NOTE | 2022-10-20 14:57 | MR ---
EXAMINATION TYPE: MR brain wo/w con DATE OF EXAM: 10/20/2022 COMPARISON: Correlation PET CT 02/28/2020 HISTORY: 72-year-old female C79.51, Bone mets. TECHNIQUE: Multiplanar, multisequence images of the brain and brainstem were acquired before and aft er administration of 8.5 mL IV Gadavist. Diffusion weighted imaging is performed. FINDINGS: No evidence for acute infarction, hemorrhage, mass, mass effect, midline shift, herniation, effacemen t of basal cisterns, or extra-axial fluid collection. The ventricles and sulci are age-appropriate. Major intracranial flow voids are intact. T2/FLAIR weighted sequences show no white matter signal abnormality. Midline structures demonstrate normal morphology. The craniocervical junction is normal. Post contrast images demonstrate no evidence of pathologic parenchymal enhancement. Dural venous sin uses are patent. Moderate mucosal thickening within the right greater than left sphenoid sinuses. A few, approximately 4, enhancing calvarial lesions are present along the left lateral convexity and posterior midline, largest measuring 1.8 cm. IMPRESSION: 1. 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 No intracranial metastases seen. No acute intracranial abnormality. 2. Moderate chronic sphenoid sinus disease.
== END | disposition home or self-care (01) ==
LOC: RADMRIMAIN 12:17
PROVIDERS: ATTEND Internal Medicine
DX: C79.51 Secondary malignant neoplasm of bone (principal); J32.3 Chronic sphenoidal sinusitis
CPT/HCPCS: 70553; A9585

== ENCOUNTER → 2022-10-31 | Outpatient (CLI) | payer MEDICARE ==
[2022-10-31 12:38] LABS: African American GFR (CKD) >90 (>60 ml/min/1.73 sqM); Blood Urea Nitrogen 19 mg/dL (7-17); Non-African American GFR(CKD) 88 (>60 ml/min/1.73 sqM)
--- NOTE | 2022-10-31 14:09 | CT ---
EXAMINATION TYPE: CT lumbar spine w con CT DLP: 1346.8 mGycm, Automated exposure control for dose reduction was used. DATE OF EXAM: 10/31/2022 1:06 PM COMPARISON: PET/CT 02/28/2020. CLINICAL INDICATION:Female, 72 years old with history of C79.51 bone mets; PHH, bone mets TECHNIQUE: Multiple axial images were obtained from the midportion of T11 through the sacroiliac vy nts after the uneventful administration of 100 cc of Isovue-300 intravenously. Soft tissue and bone windows in coronal and sagittal planes were obtained and reviewed. FINDINGS: Alignment: There are 5 lumbar type vertebral bodies with grade 1 anterolisthesis of L4 on L5. No pars defects.. Bone: No evidence of fracture is identified. No lytic or sclerotic aggressive osseous lesions identi fied. Multilevel facet arthropathy. No abnormal contrast enhancement. Discs: Multilevel degenerative disc disease with disc space narrowing, endplate sclerosis, anterior o steophytosis, and vacuum disc disease. T12-L1: No spinal canal or neural foraminal stenosis is identified. L1-L2: Broad-based disc bulge with mild effacement of anterior thecal sac. The neural foramen are pat ent bilaterally. L2-L3: Broad-based disc bulge without significant central canal stenosis. Bilateral facet arthropathy . Mild right neural foraminal stenosis. The left neural foramen is patent. L3-L4: Broad-based disc bulge with mild effacement of anterior thecal sac. Facet arthropathy with mil d right neural foraminal stenosis. The left neural foramen is patent. L4-L5: Grade 1 anterolisthesis of L4 on L5 with uncovering of the disc. Broad-based disc bulge with mild effacement of the intrathecal sac. Facet arthropathy. Mild bilateral neural foraminal stenosis. L5-S1: No spinal canal or neural foraminal stenosis is identified. Facet arthropathy. Other: 1 cm right renal cyst. Sigmoid diverticulosis without evidence for acute diverticulitis. IMPRESSION: 1. No evidence of fracture of the lumbar spine. 2. No aggressive lytic or sclerotic lesion identified. No abnormal contrast enhancement. 3. Multilevel degenerative disc disease as described above.
== END | disposition home or self-care (01) ==
LOC: RADCTMAIN 11:56
PROVIDERS: ATTEND Internal Medicine
DX: M51.36 Other intervertebral disc degeneration, lumbar region (principal); C79.51 Secondary malignant neoplasm of bone
CPT/HCPCS: 82565; 84520; 72132; 36415; Q9967

== ENCOUNTER 2022-11-03 03:05 | Inpatient (IN) | payer MEDICARE ==
[2022-11-03] MEDS ORDERED: IPRATROPIUM-ALBUTEROL 3 ML NEB INHALATION STA (03:19)
[2022-11-03] MEDS ORDERED: methylPREDNISolone SOD SUCCI 125 MG/2 ML VIAL IV STA (03:19)
[2022-11-03] MEDS ORDERED: ASPIRIN 81 MG PO STA (03:19)
[2022-11-03] MEDS ORDERED: MORPHINE SULFATE 4 MG/ML SYRINGE IVP STA ×2 (03:19→05:18)
--- NOTE | 2022-11-03 03:35 | ED ---
General Adult HPI - General Chief complaint: Back Pain/Injury Stated complaint: pain in rib cage Time Seen by Provider: 11/03/22 03:07 Source: patient, RN notes reviewed, old records reviewed Mode of arrival: EMS Limitations: no limitations - History of Present Illness Initial comments: Patient is a 72-year-old female with past medical history remarkable for asthma, suspected metastatic cancer currently being worked up, who presents emergency Department complaining of left-sided rib and back pain. States she woke up this evening with left-sided pain. States it wraps around the side in a belt like distribution is worse with movement of her left arm as well as movement of her torso. Worse with palpation along the inferior ribs. Denies any trauma. Endorses chronic dyspnea from her asthma as well as suspected metastasis. Is due to have pets scanning on Monday. Has also been dealing with intermittent abdominal distention over the last 2-3 weeks with intermittent constipation. States that she feels that her abdomen is somewhat more distended currently but it does go down when she has bowel movements which have been regular for her. No concern for constipation. Denies any fevers, chills. Denies any sick contacts. He is not on oxygen at home. Has a history of asthma. Presents for further evaluation at this time.Denies any cardiac history. She does endorse having also progressively worsening weakness in her bilateral lower extremities. Receiving outpatient MRI and has the report which does not indicate any nerve compression. [facility] and she was referred back to Dr. Taylor. Also endorses some intermittent numbness in bilateral lower extremities. Denies any urinary or bowel incontinence or retention. States this has been progressive for the last 3 weeks. MRI obtained 2 weeks ago showed no obvious cauda equina syndrome or nerve compression based on the report. Patient does have cancer lesions. - Related Data Home Medications Medication Instructions Recorded Confirmed Cetirizine HCl [Zyrtec] 10 mg PO DAILY 04/11/16 11/03/22 Levothyroxine Sodium [Synthroid] 125 mcg PO DAILY 04/11/16 11/03/22 Albuterol Nebulized [Ventolin 2.5 mg INHALATION RT-QID PRN 10/31/16 11/03/22 Nebulized] Montelukast [Singulair] 10 mg PO HS 10/31/16 11/03/22 Albuterol Sulfate [Albuterol 2 puff INHALATION RT-QID PRN 11/03/22 11/03/22 Sulfate Hfa] Budesonide/Formoterol Fumarate 1 puff INHALATION RT-DAILY 11/03/22 11/03/22 [Symbicort 80-4.5 Mcg Inhaler] Ergocalciferol [Vitamin D2 (1250 1,250 mcg PO GONZALEZ 11/03/22 11/03/22 Mcg = 68139 Iu)] Rosuvastatin [Crestor] 20 mg PO TUFR 11/03/22 11/03/22 Tiotropium 2.5 Mcg/Puff [Spiriva 2 puff INHALATION RT-DAILY 11/03/22 11/03/22 Respimat 2.5 Mcg] traMADol HCL 50 mg PO TID PRN 11/03/22 11/03/22 Allergies Allergy/AdvReac Type Severity Reaction Status Date / Time bee venom protein (honey bee) Allergy Anaphylaxis Verified 11/03/22 07:46 Penicillins Allergy Anaphylaxis Verified 11/03/22 07:46 /Hives Review of Systems ROS Statement: Those systems with pertinent positive or pertinent negative responses have been documented in the HPI. Review of Systems: CONST: Denies fever EYES: Denies blurry vision ENT: Denies nasal congestion C/V: Endorses chest wall pain RESP: Denies shortness of breath GI: Endorses mild abdominal distention : Denies dysuria SKIN: Denies rash. MSK: Denies joint pain. NEURO: Denies headache ROS Other: All systems not noted in ROS Statement are negative. Past Medical History Past Medical History: Asthma, Cancer, Osteoarthritis (OA), Skin Disorder, Thyroid Disorder Additional Past Medical History / Comment(s): OCC Excema. Hx Thyroid Cancer. 2019 Ct - Lung nodules- non cancerous -per pt. History of Any Multi-Drug Resistant Organisms: None Reported Past Surgical History: Joint Replacement, Tonsillectomy Additional Past Surgical History / Comment(s): 05/02/16 Total L Hip Arth roplasty. Thyroidectomy, rt hip surgery Past Anesthesia/Blood Transfusion Reactions: No Reported Reaction Additional Past Anesthesia/Blood Transfusion Reaction / Comment(s): FATHER - POSS PONV. Past Psychological History: No Psychological Hx Reported Additional Psychological History / Comment(s): Pt resides alone. Smoking Status: Former smoker Past Alcohol Use History: Occasional Additional Past Alcohol Use History / Comment(s): Quit smoking 35 yrs ago, smoked for 16 yrs- 2 PPD Past Drug Use History: None Reported - Past Family History Sister(s) Family Medical History: Cancer Father Family Medical History: Cancer General Exam - General Exam Comments Initial Comments: General: Appears in no acute distress. HEAD: Normal with no signs of head trauma. EYES: PERRLA, EOMI, conjunctiva normal, no discharge. ENT: Hearing grossly intact, normal oropharynx. RESPIRATORY: Clear breath sounds bilaterally. No wheezes, rales, or rhonchi. C/V: Regular rate and rhythm. S1 and S2 auscultated. Peripheral pulses 2+ and intact throughout. ABD: Abd is soft, nontender, nondistended EXT: Normal range of motion, no obvious deformity. Chest pain is reproducible on palpation and radiates around the intercostal space between the inferior most ribs from the midclavicular line towards the back through her armpit. To be musculoskeletal pain. SKIN: No rashes or lesions observed on exposed skin. NEURO: Alert and oriented 4. Limitations: no limitations Course Vital Signs 11/03/22 11/03/22 03:08 04:12 Temperature 97.2 F L Pulse Rate 70 Respiratory 20 Rate Blood Pressure 161/107 O2 Sat by Pulse 94 L Oximetry Medical Decision Making - Medical Decision Making Was pt. sent in by a medical professional or institution (LULU Murrell, PHOSPHATIC FERTILIZER SUPERVISOR, urgent care, hospital, or senior care...) When possible be specific @ -No Did you speak to anyone other than the patient for history (EMS, parent, family, police, friend...)? What history was obtained from this source @ -No Did you review nursing and triage notes (agree or disagree)? Why? @ -I reviewed and agree with nursing and triage notes Were old charts reviewed (outside hosp., previous admission, EMS record, old EKG, old radiological studies, urgent care reports/EKG's, senior care records)? Report findings @ -Recent MRI, lumbar spine CT reviewed from last month.MRI report of the lumbar spine reviewed the imaging not available in our edema. Differential Diagnosis (chest pain, altered mental status, abdominal pain women, abdominal pain men, vaginal bleeding, weakness, fever, dyspnea, syncope, headache, dizziness, GI bleed, back pain, seizure, CVA, palpatations, mental health, musculoskeletal)? @ -Differential Chest Pain: Stable Angina, Unstable Angina, STEMI, NSTEMI Aortic Dissection, Pneumothorax, Musculoskeletal, Esophageal Spasm GERD, Cholecystitis, Pancreatitis, Zoster, this is not meant to be an all-inclusive list. EKG interpreted by me (3pts min.). @ -As above X-rays interpreted by me (1pt min.). @ -Chest x-ray reveals no obvious acute cardio pulmonary process. KUB x-ray reveals no obvious acute process. CT interpreted by me (1pt min.). @ -CT imaging of the abdomen and pelvis revealed gastroparesis as well as findings concerning for metastatic disease but no other acute process to explain her symptoms. U/S interpreted by me (1pt. min.). @ -None done What testing was considered but not performed or refused? (CT, X-rays, U/S, labs)? Why? @ -None What meds were considered but not given or refused? Why? @ -None Did you discuss the management of the patient with other professionals (professionals i.e. , PA, PHOSPHATIC FERTILIZER SUPERVISOR, lab, RT, psych nurse, psychotherapist social worker, litigation specialist, teacher, title officer, case management coordinator)? Give summary @ -Discussed the case with OA spine physician Dr. Miranda who agreed to evaluate the patient was in agreement with the plan. Was in agreement with holding off on MRI until he reviews the previous MRIs. Also spoke with Dr. Taylor who accepted the patient. Was smoking cessation discussed for >3mins.? @ -No Was critical care preformed (if so, how long)? @ -No Were there social determinants of health that impacted care today? How? (Homelessness, low income, unemployed, alcoholism, drug addiction, transportation, low edu. Level, literacy, decrease access to med. care, fdc, rehab)? @ -No Was there de-escalation of care discussed even if they declined (Discuss DNR or withdrawal of care, Hospice)? DNR status @ -No What co-morbidities impacted this encounter? (DM, HTN, Smoking, COPD, CAD, Cancer, CVA, ARF, Chemo, Hep., AIDS, mental health diagnosis, sleep apnea, morbid obesity)? @ -Suspected metastatic cancer, asthma Was patient admitted / discharged? Hospital course, mention meds given and route, prescriptions, significant lab abnormalities, going to OR and other pertinent info. @ -Based on the patient's presentation and physical exam, she presents complaining of what appears to be musculoskeletal chest wall pain. It is also having some wheezing on exam. Pulse is having some abdominal distention which has been ongoing for weeks, but has acutely worsened in the last 24 hours. Patient has also had worsening mobility with numbness that is intermittent in bilateral lower extremities as well as weakness in bilateral lower extremities. All symptoms were believed to be from suspected metastatic cancer. We will obtain cardiac workup but I do suspect her chest pain is mostly skeletal in nature. She will also receive IV morphine as well as breathing treatments and IV steroids. She will receive an aspirin as well. Patient was in agreement this plan. Vital signs within acceptable limits. Patient's laboratory studies are remarkable for acutely elevated LFTs minimally as well as an elevated alk phos. Patient is acutely elevated lipase as well. Troponin is undetectable. Remainder of labs are within acceptable limits. EKG showed no signs of acute ischemia. At this time, we did discuss her workup. With her decreased mobility, as well as her worsening abdominal distention that is worse in the last 24 hours with discomfort, we will obtain a CT abdomen and pelvis. We did discuss at length risks as the patient apparently has known metastatic cancer and is due to get a PET scan tomorrow but with her acutely worsening abdominal pain and discomfort as well as acutely elevated lipase joint decision was made to obtain a CT imaging of the abdomen and pelvis. She was in agreement with this plan. She will be redosed pain medications. CT and pelvis was unremarkable, showing signs of gastroparesis but no other acute findings other than the concern for metastatic disease which is known. I opted the patient. I believe she is an unsafe discharge home and she is now requiring near full assist for transfers and his lower extremity weakness as well as numbness. No urinary or bowel incontinence. There is concern for cauda equina syndrome but patient did receive an MRI of the lumbar spine 2 weeks ago and she does have the report. Was referred back to primary care for further evaluation. Symptoms have progressed since 2 weeks ago and are now worse. I did discuss with her the rest of her workup, and she expressed understanding. Chest wall pain is likely from a muscle strain. Patient appears to gastroparesis and CT. She expressed understanding. We will admit her to have a surveillance specialist evaluate her as well as neurology. I spoke with Dr. Miranda who was in agreement this plan. PCP Dr. Taylor did accept the patient under his service. Undiagnosed new problem with uncertain prognosis? @ -No Drug Therapy requiring intensive monitoring for toxicity (Heparin, Nitro, Insulin, Cardizem)? @ -No Were any procedures done? @ -No Diagnosis/symptom? @ -Chest wall pain Acute, or Chronic, or Acute on Chronic? @ -Acute Uncomplicated (without systemic symptoms) or Complicated (systemic symptoms)? @ -Uncomplicated Side effects of treatment? @ -none Exacerbation, Progression, or Severe Exacerbation] @ -no Poses a threat to life or bodily function? @ -no Diagnosis/symptom? @ -Asthma Acute, or Chronic, or Acute on Chronic? @ -Acute on chronic Uncomplicated (without systemic symptoms) or Complicated (systemic symptoms)? @ -Uncomplicated Side effects of treatment? @ -none Exacerbation, Progression, or Severe Exacerbation] @ -Exacerbation Poses a threat to life or bodily function? @ -no Diagnosis/symptom? @ -Concern for metastatic disease Acute, or Chronic, or Acute on Chronic? @ -Acute Uncomplicated (without systemic symptoms) or Complicated (systemic symptoms)? @ -Complicated Side effects of treatment? @ -none Exacerbation, Progression, or Severe Exacerbation] @ -no Poses a threat to life or bodily function? @ -yes Diagnosis/symptom? @ -Lower extremity weakness and sensory deficits of unknown etiology Acute, or Chronic, or Acute on Chronic? @ -Acute Uncomplicated (without systemic symptoms) or Complicated (systemic symptoms)? @ -Complicated Side effects of treatment? @ -none Exacerbation, Progression, or Severe Exacerbation] @ -no Poses a threat to life or bodily function? @ -Unknown - Lab Data Result diagrams: 11/03/22 03:23 11/03/22 03:23 Lab Results 11/03/22 11/03/22 11/03/22 Range/Units 03:23 03: 03:23 WBC 8.1 (3.8-10.6) k/uL RBC 5.14 (3.80-5.40) m/uL Hgb 15.2 (11.4-16.0) gm/dL Hct 45.9 (34.0-46.0) % MCV 89.2 (80.0-100.0) fL MCH 29.5 (25.0-35.0) pg MCHC 33.1 (31.0-37.0) g/dL RDW 12.1 (11.5-15.5) % Plt Count 208 (150-450) k/uL MPV 8.3 Neutrophils % 73 % Lymphocytes % 16 % Monocytes % 7 % Eosinophils % 2 % Basophils % 1 % Neutrophils # 5.9 (1.3-7.7) k/uL Lymphocytes # 1.3 (1.0-4.8) k/uL Monocytes # 0.6 (0-1.0) k/uL Eosinophils # 0.1 (0-0.7) k/uL Basophils # 0.0 (0-0.2) k/uL PT 9.5 (9.0-12.0) sec INR 0.9 (<1.2) APTT 22.8 (22.0-30.0) sec Sodium 136 L (137-145) mmol/L Potassium 4.6 (3.5-5.1) mmol/L Chloride 106 (98-107) mmol/L Carbon Dioxide 24 (22-30) mmol/L Anion Gap 6 mmol/L BUN 16 (7-17) mg/dL Creatinine 0.54 (0.52-1.04) mg/dL Est GFR (CKD-EPI)AfAm >90 (>60 ml/min/1.73 sqM) Est GFR (CKD-EPI)NonAf >90 (>60 ml/min/1.73 sqM) Glucose 119 H (74-99) mg/dL Calcium 8.9 (8.4-10.2) mg/dL Magnesium 2.2 (1.6-2.3) mg/dL Total Bilirubin 0.6 (0.2-1.3) mg/dL AST 50 H (14-36) U/L ALT 44 H (4-34) U/L Alkaline Phosphatase 151 H (38-126) U/L Troponin I (0.000-0.034) ng/mL Total Protein 6.5 (6.3-8.2) g/dL Albumin 4.1 (3.5-5.0) g/dL Lipase 463 H (23-300) U/L 11/03/22 Range/Units 03:23 WBC (3.8-10.6) k/uL RBC (3.80-5.40) m/uL Hgb (11.4-16.0) gm/dL Hct (34.0-46.0) % MCV (80.0-100.0) fL MCH (25.0-35.0) pg MCHC (31.0-37.0) g/dL RDW (11.5-15.5) % Plt Count (150-450) k/uL MPV Neutrophils % % Lymphocytes % % Monocytes % % Eosinophils % % Basophils % % Neutrophils # (1.3-7.7) k/uL Lymphocytes # (1.0-4.8) k/uL Monocytes # (0-1.0) k/uL Eosinophils # (0-0.7) k/uL Basophils # (0-0.2) k/uL PT (9.0-12.0) sec INR (<1.2) APTT (22.0-30.0) sec Sodium (137-145) mmol/L Potassium (3.5-5.1) mmol/L Chloride (98-107) mmol/L Carbon Dioxide (22-30) mmol/L Anion Gap mmol/L BUN (7-17) mg/dL Creatinine (0.52-1.04) mg/dL Est GFR (CKD-EPI)AfAm (>60 ml/min/1.73 sqM) Est GFR (CKD-EPI)NonAf (>60 ml/min/1.73 sqM) Glucose (74-99) mg/dL Calcium (8.4-10.2) mg/dL Magnesium (1.6-2.3) mg/dL Total Bilirubin (0.2-1.3) mg/dL AST (14-36) U/L ALT (4-34) U/L Alkaline Phosphatase (38-126) U/L Troponin I <0.012 (0.000-0.034) ng/mL Total Protein (6.3-8.2) g/dL Albumin (3.5-5.0) g/dL Lipase (23-300) U/L - EKG Data -: EKG Interpreted by Me EKG Comments: 12-lead Electrocardiogram Interpretation Note EKG was reviewed and interpreted by myself. 12-lead ECG performed at 0331 is interpreted by me as revealing normal sinus rhythm at a rate of 83 beats per minute. Ferr[place] is normal. [place] interval is 181 ms, QRS duration is 83 ms, QTc is 417 ms.. There were no ST or T wave abnormalities to suggest myocardial ischemia or injury. R wave progression across the precordium was satisfactory. By my interpretation this EKG is non-diagnostic for acute ischemia. PAC present. Findings concerning for possible incomplete right bundle-branch block When compared with EKG from March 2019, no significant change. Disposition Clinical Impression: Lower extremity weakness, Lower extremity numbness, Asthma exacerbation, Gastroparesis, Metastatic disease Disposition: ADMITTED IP TO THIS HOSP Condition: Stable Time of Disposition: 06:42
[2022-11-03 04:18] LABS: Basophils % (A) 1 %; Eosinophils # (A) 0.1 k/uL (0-0.7); Eosinophils % (A) 2 %; HCT 45.9 % (34.0-46.0); HGB 15.2 gm/dL (11.4-16.0); Lymphocytes # (A) 1.3 k/uL (1.0-4.8); Lymphocytes % (A) 16 %; MCH 29.5 pg (25.0-35.0); MCHC 33.1 g/dL (31.0-37.0); MCV 89.2 fL (80.0-100.0); Mean Platelet Volume 8.3; Monocytes # (A) 0.6 k/uL (0-1.0); Monocytes % (A) 7 %; Neutrophils # (A) 5.9 k/uL (1.3-7.7); Neutrophils % (A) 73 %; Platelet Count 208 k/uL (150-450); RBC 5.14 m/uL (3.80-5.40); RDW 12.1 % (11.5-15.5); WBC 8.1 k/uL (3.8-10.6)
[2022-11-03 04:23] LABS: INR 0.9 (<1.2); Partial Thromboplastin Time 22.8 sec (22.0-30.0); Prothrombin Time 9.5 sec (9.0-12.0)
[2022-11-03 04:46] LABS: ALT 44 U/L (4-34); AST 50 U/L (14-36); African American GFR (CKD) >90 (>60 ml/min/1.73 sqM); Albumin 4.1 g/dL (3.5-5.0); Alkaline Phosphatase 151 U/L (38-126); Anion Gap 6 mmol/L; Blood Urea Nitrogen 16 mg/dL (7-17); Calcium 8.9 mg/dL (8.4-10.2); Carbon Dioxide 24 mmol/L (22-30); Chloride 106 mmol/L (98-107); Glucose 119 mg/dL (74-99); Lipase 463 U/L (23-300); Magnesium 2.2 mg/dL (1.6-2.3); Non-African American GFR(CKD) >90 (>60 ml/min/1.73 sqM); Potassium 4.6 mmol/L (3.5-5.1); Sodium 136 mmol/L (137-145); Total Bilirubin 0.6 mg/dL (0.2-1.3); Total Protein 6.5 g/dL (6.3-8.2)
[2022-11-03] MEDS ORDERED: KETOROLAC 15 MG/ML 1 ML VIAL IVP STA (05:18)
[2022-11-03] MEDS ORDERED: LIDOCAINE 5% PATCH TOPICAL STA (05:18)
[2022-11-03] MEDS ORDERED: ONDANSETRON 4 MG/2 ML VIAL IVP STA (05:19)
--- NOTE | 2022-11-03 05:30 | XR ---
EXAMINATION TYPE: XR chest 1V portable DATE OF EXAM: 11/03/2022 COMPARISON: Chest x-ray November 07, 2016 HISTORY: Chest pain. TECHNIQUE: Single frontal view upright of the chest is obtained. FINDINGS: There is no suspicious focal air space opacity, pleural effusion, or pneumothorax seen. T he cardiac silhouette size is stable and within normal limits. Multilevel spurring in the thoracic sp ine. Overlying EKG leads. IMPRESSION: No acute process. No significant change from prior.
--- NOTE | 2022-11-03 05:32 | XR ---
EXAMINATION TYPE: XR KUB portable DATE OF EXAM: 11/03/2022 CLINICAL HISTORY: Pain and nausea TECHNIQUE: Supine and upright views of the abdomen are obtained. COMPARISON: None. FINDINGS: Gas seen in somewhat prominent stomach. Scattered gas is seen in non-distended small bowel loops. Gas and fecal material is seen in non-distended colon. There is no visceromegaly, pneumoper itoneum, or abnormal calcification appreciated. The lung bases are clear. Metallic hardware from bi lateral hip arthroplasty is partially imaged. Spurring throughout the thoracolumbar spine noted. IMPRESSION: Overall nonobstructive bowel gas pattern.
--- NOTE | 2022-11-03 06:11 | CT ---
EXAMINATION TYPE: CT abdomen pelvis w con DATE OF EXAM: 11/03/2022 HISTORY: abd distention & pain. h/o thyroid CA CT DLP: 1494..1mGycm Automated Exposure Control for Dose Reduction was Utilized. CONTRAST: CT scan of the abdomen and pelvis is performed with IV Contrast, patient injected with 100 mL of Isov ue 300. COMPARISON: PET CT February 28, 2020 FINDINGS: LUNG BASES: Mild to moderate bibasilar nodularity and/or nodular scarring is redemonstrated. LIVER/GB: There are now multiple heterogeneous hypodense masses scattered throughout the liver consis tent with metastatic disease. For references 5.3 cm hypodense lesion inferior right hepatic lobe axia l image 34. PANCREAS: No significant abnormality is seen. SPLEEN: No significant abnormality is seen. ADRENALS: No significant abnormality is seen. KIDNEYS: Mild to moderately distended bladder. Symmetric cortical uptake and excretion without hydron ephrosis seen bilaterally. BOWEL: Mild to moderately distended stomach with air-fluid level. No suspicious small or large bowel dilatation. UTERUS/ADNEXA: Suboptimally evaluated due to adjacent metal hips. LYMPH NODES: A few prominent but subcentimeter lymph nodes throughout the mesentery. Prior slightly e nlarged hypermetabolic mesenteric lymph nodes now not clearly seen. OSSEOUS STRUCTURES: Metallic hardware from bilateral hip arthroplasty causes streak artifact limitin g evaluation of pelvic structures. OTHER: Moderate-sized fat-containing umbilical hernia redemonstrated. IMPRESSION: 1. No bowel obstruction. Mild to moderately distended stomach with air-fluid level. Consider gastropa resis. Follow-up advised. 2. Few prominent but subcentimeter mesenteric lymph nodes with minimal bowen mesentery appearance on current study improved from PET/CT but new hepatic metastatic disease is now present.
[2022-11-03] MEDS ORDERED: ACETAMINOPHEN TAB 325 MG TAB PO PRN (07:24)
[2022-11-03] MEDS ORDERED: MORPHINE SULFATE 4 MG/ML SYRINGE IV PRN (07:24)
[2022-11-03] MEDS ORDERED: NALOXONE 0.4 MG/ML 1 ML VIAL IV PRN (07:24)
[2022-11-03] MEDS ORDERED: KETOROLAC 15 MG/ML 1 ML VIAL IVP PRN (07:24)
[2022-11-03] MEDS ORDERED: ONDANSETRON 4 MG/2 ML VIAL IVP PRN ×2 (07:24→11:08)
[2022-11-03] MEDS ORDERED: SYMBICORT 80-4.5 MCG INHALER INHALATION SCH (08:00)
[2022-11-03] MEDS ORDERED: NON FORMULARY DRUG (Tiotropium 2.5 Mcg/Puff 10 PUFF Each) INHALATION SCH (08:00)
[2022-11-03] MEDS: HEPARIN SODIUM,PORCINE/PF 5,000 UNIT/0.5 ML SYRINGE SQ SCH ×3 (08:08→23:34)
[2022-11-03] MEDS ORDERED: LEVOTHYROXINE 125 MCG TAB PO SCH (09:00)
[2022-11-03] MEDS ORDERED: LORATADINE 10 MG TAB PO SCH (09:00)
--- NOTE | 2022-11-03 11:03 | P.CNOR ---
History of Present Illness - [facility] Consult date: 11/03/22 Consult reason: other History of present illness: The patient is seen and examined at bedside. She is a very pleasant 72-year-old female who is normally active and ambulatory ambulate without any assistance. She was spending her time in [place] but about 3 weeks ago started having some back pain and issues. She returned home to have further evaluation and was found have significant pain in her back and some evidence of spondylosis and underwent further imaging which revealed significant changes including likelihood of metastasis at her spine and liver. With this she continued more workup and evaluation and is continuing that workup and is scheduled for a PET scan soon. Over the past 2 weeks she has been developing further difficulties with her lower extremities. She started having some weakness at the left side and then develop over to the right side as well. The pain goes across her back and into her legs and she has developed significant weakness and numbness at her bilateral lower extremities. Now that weakness and numbness is profound for her and she presented to the hospital. Apparently she was able to have a normal bowel movement yesterday she could tell that she had to have bowel movement and was able to have a normal bowel movement without any accident. She feels as th ough she has been able to urinate without any retention. She denies any specific injury. She denies any history of problems like this in the past. She is currently unable to ambulate. She denies any fevers chills or night sweats. She denies any nausea or vomiting. She denies any headaches shortness of breath or chest pain. Review of Systems As stated per HPI. She feels numbness from approximately her knee able all the way down to her tip of her feet. She feels that she has essentially no sensation from her waist down. She is unable to move her legs at all. She essentially 0 out of 5 strength in bilateral lower extremities. She does not have pain with passive range of motion at her ankles. Toes hips or knees. Her thighs and calves soft nontender. Past Medical History Past Medical History: Asthma, Cancer, Osteoarthritis (OA), Skin Disorder, Thyroid Disorder Additional Past Medical History / Comment(s): OCC Excema. Hx Thyroid Cancer. 2019 Ct - Lung nodules- non cancerous -per pt. Undergoing current workup for possible metastasis at the long liver and spine History of Any Multi-Drug Resistant Organisms: None Reported Past Surgical History: Joint Replacement, Tonsillectomy Additional Past Surgical History / Comment(s): 05/02/16 Total L Hip Arthroplasty. Thyroidectomy, rt hip surgery Past Anesthesia/Blood Transfusion Reactions: No Reported Reaction Additional Past Anesthesia/Blood Transfusion Reaction / Comm: FATHER - POSS PONV. Past Psychological History: No Psychological Hx Reported Additional Psychological History / Comment(s): Pt resides alone. Smoking Status: Former smoker Past Alcohol Use History: Occasional Additional Past Alcohol Use History / Comment(s): Quit smoking 35 yrs ago, smoked for 16 yrs- 2 PPD Past Drug Use History: None Reported - Past Family History Sister(s) Family Medical History: Cancer Father Family Medical History: Cancer Medications and Allergies Home Medications Medication Instructions Recorded Confirmed Type Cetirizine HCl [Zyrtec] 10 mg PO DAILY 04/11/16 11/03/22 History Levothyroxine Sodium [Synthroid] 125 mcg PO DAILY 04/11/16 11/03/22 History Albuterol Nebulized [Ventolin 2.5 mg INHALATION RT-QID PRN 10/31/16 11/03/22 History Nebulized] Montelukast [Singulair] 10 mg PO HS 10/31/16 11/03/22 History Albuterol Sulfate [Albuterol 2 puff INHALATION RT-QID PRN 11/03/22 11/03/22 History Sulfate Hfa] Budesonide/Formoterol Fumarate 1 puff INHALATION RT-DAILY 11/03/22 11/03/22 History [Symbicort 80-4.5 Mcg Inhaler] Ergocalciferol [Vitamin D2 (1250 1,250 mcg PO GONZALEZ 11/03/22 11/03/22 History Mcg = 09839 Iu)] Rosuvastatin [Crestor] 20 mg PO TUFR 11/03/22 11/03/22 History Tiotropium 2.5 Mcg/Puff [Spiriva 2 puff INHALATION RT-DAILY 11/03/22 11/03/22 History Respimat 2.5 Mcg] traMADol HCL 50 mg PO TID PRN 11/03/22 11/03/22 History Allergies Allergy/AdvReac Type Severity Reaction Status Date / Time bee venom protein (honey bee) Allergy Anaphylaxis Verified 11/03/22 07:46 Penicillins Allergy Anaphylaxis Verified 11/03/22 07:46 /Hives Physical Examination Osteopathic Statement: *. No significant issues noted on an osteopathic structural exam other than those noted in the History and Physical/Consult. - C Spine: dermatomal strength & reflexes bilateral Shoulder strength: flexion: 5/5 (Her neck is nontender to palpation or range motion. Her spine is nontender to direct palpation over the midline. There is no crepitus. Her upper extremities have 5 out of 5 strength. Negative Zoe's.) - L Spine: dermatomal strength & reflexes bilateral Strength: hip flexion: 0/5 (Her lower extremities have essentially 0 out of 5 strength at her hips knees and ankles feet and toes.) Strength: hip extension: 0/5 (0 out of 5 deep tendon reflexes at the knees and ankles. No clonus negative Babinski's) Strength: knee flexion: 0/5 (At her back she has a change in the sensation around her lower ribs and her nasal. She does not have sensation at her thighs Or feet.) Results - Labs Labs: Abnormal Lab Results - Last 24 Hours (Table) 11/03/22 Range/Units 03:23 Sodium 136 L (137-145) mmol/L Glucose 119 H (74-99) mg/dL AST 50 H (14-36) U/L ALT 44 H (4-34) U/L Alkaline Phosphatase 151 H (38-126) U/L Lipase 463 H (23-300) U/L H & H 11/03/22 Range/Units 03:23 Hgb 15.2 (11.4-16.0) gm/dL Hct 45.9 (34.0-46.0) % Coagulation 11/03/22 Range/Units 03:23 INR 0.9 (<1.2) Result Diagrams: 11/03/22 03:23 11/03/22 03:23 - Diagnostic results CT Scan - lumbar: report reviewed, image reviewed (There is a recent MRI of her lumbar spine with possibly metastasis and evidence of spondylosis particularly L3 4 L4 5 with some stenosis. Her new computed tomography scan from 2 days ago at her lumbar spine does not show change from the MRI. She has listhesis L45 with some stenosis L3 4 L4 5 ) Assessment and Plan Assessment: Bilateral lower extremity neurologic deficit with near complete sensory loss below the approximate level of T10 Currently being worked up for metastatic cancer with possible spinal long and hepatic metastases, uncertain primary Profound weakness bilaterally lower extremities Lumbar spondylosis Plan: Bilateral lower extremity neurologic deficit with near complete sensory loss b elow the approximate level of T10 Currently being worked up for metastatic cancer with possible spinal long and hepatic metastases, uncertain primary Profound weakness bilaterally lower extremities Lumbar spondylosis The patient has acute new bilateral lower extremity weakness with sensory change from approximate level TX down with severe sensory loss bilaterally. She is still having normal bowel movements and urination but has gross weakness globally in her lower extremities. Certainly of great concern for possibly of thoracic lesion as her MRI of her lumbar spine did not show obvious cause. Her neck and upper extremities appear to be doing adequately. We need to obtain a stat MRI imaging of her thoracic and cervical spine to evaluate for cord change. We will obtain x-rays of these areas well. We should start continued steroid medication to try to decrease some of the swelling around her neural structures to see if she could have any improvement. We will go ahead and start Solu-Medrol IV 100 mg every 12 We did help with pain control with medication as well. Is difficult to fully say what the source of her symptoms are. She has history of recently diagnosed metastasis and may have had acute change around her spine causing cord change and deficits. We definitely need further imaging to better evaluate this. We will have discussed with her whether we can pursue further treatment and definitive care at this institution or if she may need potential transfer. We will have more for her once we obtain imaging today with MRI of her cervical and thoracic spine. Neurology was present in the room at the time when we saw the patient as well. We agree with the further workup and treatment.
[2022-11-03] MEDS ORDERED: METOCLOPRAMIDE 5 MG/ML 2 ML VIAL IVP PRN (11:08)
[2022-11-03] MEDS ORDERED: IPRATROPIUM-ALBUTEROL 3 ML NEB INHALATION PRN (11:09)
[2022-11-03] MEDS ORDERED: HYDROmorphone 1 MG/ML 1 ML SYRINGE IVP PRN (11:12)
[2022-11-03] MEDS ORDERED: HYDROcodone/APAP 5-325MG 1 EACH TAB PO PRN (11:12)
[2022-11-03] MEDS ORDERED: diazePAM 5 MG TAB PO PRN (11:12)
[2022-11-03] MEDS ORDERED: PANTOPRAZOLE 40 MG/10 ML VIAL IVP SCH (11:15)
[2022-11-03 11:36] LABS: Appearance,Urine Clear (Clear); Bilirubin,Urine Negative (Negative); Blood,Urine Negative (Negative); Color,Urine Yellow; Glucose,Urine (UA) Trace (Negative); Ketones,Urine 1+ (Negative); Leukocyte Esterase,Urine Negative (Negative); Nitrite,Urine Negative (Negative); PH, Urine 5.5 (5.0-8.0); Protein,Urine Trace (Negative); Urobilinogen,Urine <2.0 mg/dL (<2.0)
[2022-11-03] MEDS: IPRATROPIUM-ALBUTEROL 3 ML NEB INHALATION SCH ×3 (12:12→18:36)
[2022-11-03 12:25] LABS: Specific Gravity,Urine >1.050 (1.001-1.035)
[2022-11-03] MEDS: HYDROmorphone 1 MG/ML 1 ML SYRINGE IVP PRN ×4 (12:56→23:34)
[2022-11-03] MEDS: methylPREDNISolone SOD SUCCI 125 MG/2 ML VIAL IV SCH ×3 (13:02→23:34)
--- NOTE | 2022-11-03 15:00 | P.HPIM ---
History of Present Illness H&P Date: 11/03/22 Chief Complaint: Rib cage and back pain, bloating This is a pleasant 72-year-old female presented to the ER with rib cage, breast and back pain, bloating, lower extremity weakness with loss of sensation,currently being worked up outpatient with oncology,Dr. 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 Reports last night and this morning, symptoms progressed ,unable to ambulate with walker to the bathroom as her legs became numb from waist down, accompanied by no sensation from waist down as well. Unable to wiggle toes. She initially was sent to Dr. Adame, regarding potential spondylosis,;underwent imaging reporting significant changes of spine and liver, suspicious for metastasis. Proceeded with further workup/evaluation with scheduling of PET scan as per oncology. No biopsy has been completed yet. Reports no difficulties with bowel movements or urine retention. Denies any fever or chills. Denies any sweats. Currently reporting significant pain of her ribs back in breast accompanied by nausea, improving. Information being obtained from patient, son, chart. Denies chest pain, palpitations or shortness of breath. Denies lightheadedness, dizziness or focal deficits. Per orthopedic spine,"CT Scan - lumbar: report reviewed, image reviewed (There is a recent MRI of her lumbar spine with possibly metastasis and evidence of spondylosis particularly L3 4 L4 5 with some stenosis. Her new computed tomography scan from 2 days ago at her lumbar spine does not show change from the MRI. She has listhesis L45 with some stenosis L3 4 L4 5 )" Review of Systems ROS Statement: Those systems with pertinent positive or pertinent negative responses have been documented in the HPI. ROS Other: All systems not noted in ROS Statement are negative. Past Medical History Past Medical History: Asthma, Cancer, Osteoarthritis (OA), Skin Disorder, Thyroid Disorder Additional Past Medical History / Comment(s): OCC Excema. Hx Thyroid Cancer. 2019 Ct - Lung nodules- non cancerous -per pt. History of Any Multi-Drug Resistant Organisms: None Reported Past Surgical History: Joint Replacement, Tonsillectomy Additional Past Surgical History / Comment(s): 05/02/16 Total L Hip Arthroplasty. Thyroidectomy, rt hip surgery Past Anesthesia/Blood Transfusion Reactions: No Reported Reaction Additional Past Anesthesia/Blood Transfusion Reaction / Comment(s): FATHER - POSS PONV. Past Psychological History: No Psychological Hx Reported Additional Psychological History / Comment(s): Pt resides alone. Smoking Status: Former smoker Past Alcohol Use History: Occasional Additional Past Alcohol Use History / Comment(s): Quit smoking 35 yrs ago, smoked for 16 yrs- 2 PPD Past Drug Use History: None Reported - Past Family History Sister(s) Family Medical History: Cancer Father Family Medical History: Cancer Medications and Allergies Home Medications Medication Instructions Recorded Confirmed Type Cetirizine HCl [Zyrtec] 10 mg PO DAILY 04/11/16 11/03/22 History Levothyroxine Sodium [Synthroid] 125 mcg PO DAILY 04/11/16 11/03/22 History Albuterol Nebulized [Ventolin 2.5 mg INHALATION RT-QID PRN 10/31/16 11/03/22 History Nebulized] Montelukast [Singulair] 10 mg PO HS 10/31/16 11/03/22 History Albuterol Sulfate [Albuterol 2 puff INHALATION RT-QID PRN 11/03/22 11/03/22 History Sulfate Hfa] Budesonide/Formoterol Fumarate 1 puff INHALATION RT-DAILY 11/03/22 11/03/22 History [Symbicort 80-4.5 Mcg Inhaler] Ergocalciferol [Vitamin D2 (1250 1,250 mcg PO GONZALEZ 11/03/22 11/03/22 History Mcg = 79931 Iu)] Rosuvastatin [Crestor] 20 mg PO TUFR 11/03/22 11/03/22 History Tiotropium 2.5 Mcg/Puff [Spiriva 2 puff INHALATION RT-DAILY 11/03/22 11/03/22 History Respimat 2.5 Mcg] traMADol HCL 50 mg PO TID PRN 11/03/22 11/03/22 History Allergies Allergy/AdvReac Type Severity Reaction Status Date / Time bee venom protein (honey bee) Allergy Anaphylaxis Verified 11/03/22 07:46 Penicillins Allergy Anaphylaxis Verified 11/03/22 07:46 /Hives Physical Exam Vitals: Vital Signs Temp Pulse Pulse Resp BP BP Pulse Ox 11/03/22 10:12 97.5 F L 75 17 138/86 92 L 11/03/22 08:12 97.3 F L 76 18 126/70 95 11/03/22 04:12 97.2 F L 11/03/22 03:08 70 20 161/107 94 L Intake and Output 11/02/22 11/03/22 11/03/22 22:59 06:59 14:59 Output Total 700 Balance -700 Output: Urine 700 Other: Weight 83.915 kg PHYSICAL EXAM: VITAL SIGNS: [As above] GENERAL: Sitting up on stretcher, no acute distress HEENT: Atraumatic, normocephalic Conjunctivae normal. eyes normal. NECK: Supple, No JVD. No thyroid enlargement. CARDIOVASCULAR: S1, S2 regular.No murmur RESPIRATION: Unlabored ,Breath sounds diminished in the bases. No rhonchi or crackles. No bronchial breathing. ABDOMEN: Soft, distended, nontender . No guarding. no masses palpable. No ascites, No hepatosplenomegaly.Bowel sounds heard. LEGS: No edema. no swelling PSYCHIATRY: Alert and oriented X3, mood and affect normal. NERVOUS SYSTEM: From waist down, denies sensation, motor strength of bilateral lower extremities 0/5. Skin: warm and dry, no rash Results CBC & Chem 7: 11/03/22 03:23 11/03/22 03:23 Labs: Abnormal Lab Results - Last 24 Hours (Table) 11/03/22 Range/Units 03:23 Sodium 136 L (137-145) mmol/L Glucose 119 H (74-99) mg/dL AST 50 H (14-36) U/L ALT 44 H (4-34) U/L Alkaline Phosphatase 151 H (38-126) U/L Lipase 463 H (23-300) U/L Assessment and Plan Assessment: Rib cage, breast and back pain, bloating, bilateral lower extremity weakness with loss of sensation, loss of motor strength ,currently being worked up outpatient with oncology,Dr. Kristi Devlin, for diffuse metastatic carcinoma,anna inessa unknown, possible spinal and hepatic metastasis Lumbar spondylosis Asthma History of thyroid cancer in the 90s, in remission Lung nodules, history of in 2020 Former nicotine dependence Plan: Continue on current medication regime ,monitoring and symptomatic treatment. Evaluated by orthopedic spine surgery with recommendations noted and appreciated. Oncology and neurology consults in place, recommendations pending. Pain management, Dilaudid ordered for better control. Antiemetics - Zofran, Reglan ordered. Despite having Dilaudid and Valium onboard patient was unable to proceed with MRI., Dr. Miranda, orthopedic spine surgeon recommending transfer this patient requires sedation to facilitate imaging for suspected spinal cord injury. Transferred to [facility] initiated per PCP. Prognosis guarded given multiple complex medical issues. The impression and plan of care has been dictated as directed. : I performed a history and examination of this patient, discussed the same with the dictator. I agree with the dictator's note ,documented as a scribe. Any additional findings or plans will be noted.
--- NOTE | 2022-11-03 16:06 | P.CNNES ---
History of Present Illness Consult date: 11/03/22 Requesting physician: Urban Sidhu Reason for Consult: BLLE weakness/sensory deficits. MRI lumbar spine 2 weeks ago unremarkable History of Present Illness: Patient is a 72-year-old female came to the hospital today inspector balance bridge at 3:05 AM by ambulance for progressive weakness of the lower limbs. Patient and her caregiver provided with a history. Patient has history of asthma. Patient had a bad episode of asthma in June 2022. In mid August 2022 she started having back pain, which she felt was possibly from pleurisy. On 09/14/2022 she came back from [place], started having met thoracic spine pain, that started extending to the left costal region and she attributed it to possible asthma. The pain started progressing across the rib cage, at first on the left, but then extended to involve all around like a belt. Patient states that 3 weeks ago she was exercising, was doing well. However one week later (2 weeks ago) on one day her left knee collapsed and she almost fell. She developed rapidly progressive weakness of the left leg, starting as the left foot drop and then extended to the whole leg. About a couple days later, started involving the right leg. She was still able to walk with her walker and with assistance with a caregiver for last couple weeks, but since last 2 days, she cannot move her legs at all. Since last night, she patient has developed constipation and urinary retention, inability to pass the urine. The bladder scan just performed revealed retained urine 907 mL.. Patient's last BM was yesterday morning. Patient states that she has no feeling whatsoever from T7 level below, is completely numb. The pain has become excruciating, greater than 10/10 pointing to the mid dorsal spine, the extent to the lower rib cage bilaterally. EMS flow sheet not available in the chart. Vital signs on arrival blood pressure 161/107, pulse rate 70, temperature 97.2. Blood test was normal CBC, PT/PTT, sodium 136 potassium 4.6, normal renal functions. AST is 50, ALT 44, troponin negative. Lipase 463. EKG shows sinus rhythm with occasional ventricular premature complexes with occasional supraventricular premature complexes. Chest x-ray showed no acute process. KUB showed overall nonobstructive bowel gas pattern. CT of abdomen and pelvis with contrast showed no bowel obstruction. Mild to moderately distended stomach with air fluid level. Consider gastroparesis. Follow-up advised. Few prominent but subcentimeter mesenteric lymph nodes with minimal bowen mesentery appearance on current study improved from PET/CT but new hepatic metastatic disease is now present. Computed tomography scan lumbar spine from 10/31/2022 revealed no evidence of f racture of the lumbar spine. No aggressive lytic or sclerotic lesion identified. No abnormal contrast enhancement. Multilevel degenerative disc disease as described above. Grade 1 anterolisthesis L4 on L5 with uncovering of the disc. MRI of the lumbar spine 10/07/2022 performed at outside facility revealed numerous bone marrow lesions within the visualized osseous structures including the lower thoracic and lumbar spine as well as the bony pelvis concerning for metastatic disease or other neoplastic process, most notably at the spinous process of L1 and left S1. Numerous hepatic lesions concerning for metastatic disease. Multilevel degenerative change and malalignment resulting in the stenosis. At L3-L4, there is moderate central canal stenosis, lateral recess stenosis and moderate severe right/mild to moderate left foraminal stenosis. At L4-L5 level, there is Anterolisthesis, disc osteophyte complex, facet degeneration with ligamentum Janeth hypertrophy, with severe canal stenosis, lateral recess stenosis and moderate foraminal stenosis. Patient has smoked 1 pack per day for about 15 years, quit 40 years ago. She has prediabetes, denies hypertension. Patient has history of thyroid cancer in the 90s, that was treated with partial thyroidectomy. Patient does not remember if she was given any chemo or radiation. She has been cured of the thyroid cancer. Review of Systems Constitutional: Reports weight loss, Denies chills, Denies fever Eyes: denies blurred vision, denies pain Ears: deny: decreased hearing, ear discharge Ears, nose, mouth and throat: Denies headache, Denies sore throat Cardiovascular: Reports chest pain, Reports shortness of breath Respiratory: Denies cough, Denies excessive sputum Gastrointestinal: Reports constipation, Denies abdominal pain, Denies diarrhea, Denies nausea, Denies vomiting Genitourinary: Reports incomplete emptying, Denies flank pain Musculoskeletal: Reports gait dysfunction, Reports leg numbness/tingling, Reports limitation of motion, Reports low back pain, Reports muscle weakness, Denies neck pain Integumentary: Denies pruritus, Denies rash Neurological: Reports as per HPI Psychiatric: Denies anxiety, Denies depression Hematologic/Lymphatic: Denies easy bruising Past Medical History Past Medical History: Asthma, Cancer, Osteoarthritis (OA), Skin Disorder, Thyroid Disorder Additional Past Medical History / Comment(s): OCC Excema. Hx Thyroid Cancer. 2019 Ct - Lung nodules- non cancerous -per pt. History of Any Multi-Drug Resistant Organisms: None Reported Past Surgical History: Joint Replacement, Tonsillectomy Additional Past Surgical History / Comment(s): 05/02/16 Total L Hip Arthroplasty. Thyroidectomy, rt hip surgery Past Anesthesia/Blood Transfusion Reactions: No Reported Reaction Additional Past Anesthesia/Blood Transfusion Reaction / Comment(s): FATHER - POSS PONV. Past Psychological History: No Psychological Hx Reported Additional Psychological History / Comment(s): Pt resides alone. Smoking Status: Former smoker Past Alcohol Use History: Occasional Additional Past Alcohol Use History / Comment(s): Quit smoking 35 yrs ago, smoke d for 16 yrs- 2 PPD Past Drug Use History: None Reported - Past Family History Sister(s) Family Medical History: Cancer Father Family Medical History: Cancer Medications and Allergies Home Medications Medication Instructions Recorded Confirmed Type Cetirizine HCl [Zyrtec] 10 mg PO DAILY 04/11/16 11/03/22 History Levothyroxine Sodium [Synthroid] 125 mcg PO DAILY 04/11/16 11/03/22 History Albuterol Nebulized [Ventolin 2.5 mg INHALATION RT-QID PRN 10/31/16 11/03/22 History Nebulized] Montelukast [Singulair] 10 mg PO HS 10/31/16 11/03/22 History Albuterol Sulfate [Albuterol 2 puff INHALATION RT-QID PRN 11/03/22 11/03/22 History Sulfate Hfa] Budesonide/Formoterol Fumarate 1 puff INHALATION RT-DAILY 11/03/22 11/03/22 History [Symbicort 80-4.5 Mcg Inhaler] Ergocalciferol [Vitamin D2 (1250 1,250 mcg PO GONZALEZ 11/03/22 11/03/22 History Mcg = 17411 Iu)] Rosuvastatin [Crestor] 20 mg PO TUFR 11/03/22 11/03/22 History Tiotropium 2.5 Mcg/Puff [Spiriva 2 puff INHALATION RT-DAILY 11/03/22 11/03/22 History Respimat 2.5 Mcg] traMADol HCL 50 mg PO TID PRN 11/03/22 11/03/22 History Allergies Allergy/AdvReac Type Severity Reaction Status Date / Time bee venom protein (honey bee) Allergy Anaphylaxis Verified 11/03/22 07:46 Penicillins Allergy Anaphylaxis Verified 11/03/22 07:46 /Hives Physical Examination - Vital Signs Vital Signs: Vital Signs Temp Pulse Resp BP Pulse Ox 11/03/22 08:12 97.3 F L 76 18 126/70 95 11/03/22 04:12 97.2 F L 11/03/22 03:08 70 20 161/107 94 L Intake and Output 11/02/22 11/03/22 11/03/22 22:59 06:59 14:59 Other: Weight 83.915 kg Patient is an elderly female, very pleasant, appears to be in distress because of back pain. She appears very uncomfortable, with severe pain. Her lips are dry. She is trying to get comfortable to get her back pain relief. Patient is alert awake oriented to time place and person. Speech and language functions are normal. Patient has a slightly hoarse, raspy voice. Patient can name and repeat very well. No aphasia or dysarthria. Attention, concentration and fund of knowledge is adequate. On cranial nerve examination, pupils are equal, round and reacting to light, visual leon are full on confrontation, with no neglect on double simultaneous stimulation. Extraocular muscles are intact with no nystagmus. Face is symmet lam, tongue protrudes to the midline. Palatal elevation and sensation normal, hearing and shoulder shrug normal, facial sensation normal. On muscle strength testing, there is no pronator drift and the strength is normal in arms distally and proximally. Patient is completely paraplegic in the bilateral lower limbs, distally and proximally. No movement possible in the legs distally or proximally. Deep tendon reflexes are symmetric 1 in the upper limbs, trace at the knees, absent ankles and plantars are flat bilaterally. Sensory to touch is equal and normal in the arms. Patient has a sensory level at T7 level with complete anesthesia from that level down. Cerebellar function showed no ataxia for [id number] testing. Cannot check the lower extremities. Gait patient nonambulatory at this time. On general examination, there is no carotid bruit or murmur, S1-S2 audible. C hest is clear on consultation. Abdomen is soft nontender. No organomegaly, bowel sounds present. Peripheral pulses are present. No edema. Results - Laboratory Findings CBC and BMP: 11/03/22 03:23 11/03/22 03:23 Abnormal Lab Findings: Abnormal Labs 11/03/22 03:23 Sodium 136 L Glucose 119 H AST 50 H ALT 44 H Alkaline Phosphatase 151 H Lipase 463 H Assessment and Plan Assessment: * Subacute onset of mid thoracic pain followed by rapidly progressive, now complete paraplegia (over 2 weeks period of time), with a sensory level at T7, and acute urinary retention. Probable spinal cord compression. Rule out metastasis to the thoracic spine. * Metastatic cancer, newly diagnosed, unclear primary. * Lumbar spondylosis, with MRI from 10/07/2022 reported severe lumbar spinal canal stenosis at L4-L5. MRI films not available, only as per dictated radiology report. * History of thyroid cancer in the 90s, status post subtotal thyroidectomy, in remission since then. * Asthma * X tobacco use Plan: * Patient needs stat MRI of the cervical and thoracic spines. Patient also has significant hyperreflexia in the lower extremities, and her previous MRI revealed possibility of severe lumbar spinal stenosis at L4-L5 level. Therefore we will also check MRI of the lumbar spine with and without contrast to evaluate for any progression over the last few weeks. * Agree with starting corticosteroids empirically * Optimize pain control. Start Dilaudid, as morphine is not working optimally. * Orthopedic spine on board, discussed in detail * Oncology consultation * Neurology will follow. Thank you for the consult. Addendum: Patient could not tolerate MRI because of spine, despite multiple attempts with excessive sedation given. She needs MRI under complete sedation, which is not a vailable in our facility. Patient to be transferred to [facility] for further management.
--- NOTE | 2022-11-03 16:56 | P.CONS ---
History of Present Illness - Reason for Consult Consult date: 11/03/22 metastatic disease Requesting physician: Urban Sidhu - Chief Complaint BLE weakness and pain - History of Present Illness Ms. Hernandez is a 72-year-old woman with a past medical history significant for hypothyroidism, hyperlipidemia, and asthma who presents for concerning findings on MRI of the lumbar spine concerning for potential metastatic disease. Of note, she was previously seen in our clinic and was followed for bilateral pulmonary nodules. She had PET/CT on 02/28/2020, which has been noted to be in stable on repeat imaging in 2020. She was advised to have follow-up of these in 6 months through her primary care physician. She notes having progressive low back pain over the past few months. The pain is worse with standing and ambulation. During this time, she has had increased weakness in her legs bilaterally, but denies any saddle anesthesia or urinary/bowel incontinence. MRI of the lumbar spine without contrast on 10/07/2022 noted numerous lesions in the bone marrow in the lower thoracic and lumbar spine along with bony pelvis that were concerning for neoplastic disease. There is also areas of concern at the spinous processes of L1 and S1. There are also numerous hepatic lesions that were potentially concerning for metastatic disease. She had an MRI of the brain on 10/20/2022 that revealed no acute infarction, hemorrhage, or metastasis. It did reveal approximately 4 enhancing calvarial lesions on the left lateral convexity and along the posterior midline with the largest of these measuring 1.[address] lumbar spine with contrast ordered and PET scan scheduled for 11/04/2022, with biopsy planned based on findings of PET scan. Patient presented to the ER with rib, breast and mid to upper back pain. She also c/o of progressing weakness of BLE, with decreasing sensation and numbness in lower extremities. Pt reports she is now unable to move lower extremities and unable to ambulate. She also reports urinary retention, and has not been able to urinate since 10pm last night. She denies loss of bowel control, and reports BM yesterday.She rates pain is 10/10. She denies SOB, palpitations, dizziness. CXR showed no acute processes. CT abd/pelvis revealed no bowel obstruction, mild to moderately distended stomach with fluid level. Few prominent subcentimeter mesenteric lymph nodes with minimal bowen mesentery appearance, improved from PET/CT, new hepatic metastatic disease. Orthopedic spine and neurology consulted . Review of Systems 10 point ROS is negative except as stated in HPI Past Medical History Past Medical History: Asthma, Cancer, Osteoarthritis (OA), Skin Disorder, Thyroid Disorder Additional Past Medical History / Comment(s): OCC Excema. Hx Thyroid Cancer. 2019 Ct - Lung nodules- non cancerous -per pt. History of Any Multi-Drug Resistant Organisms: None Reported Past Surgical History: Joint Replacement, Tonsillectomy Additional Past Surgical History / Comment(s): 05/02/16 Total L Hip Arthroplasty. Thyroidectomy, rt hip surgery Past Anesthesia/Blood Transfusion Reactions: No Reported Reaction Additional Past Anesthesia/Blood Transfusion Reaction / Comm: FATHER - POSS PONV. Past Psychological History: No Psychological Hx Reported Additional Psychological History / Comment(s): Pt resides alone. Smoking Status: Former smoker Past Alcohol Use History: Occasional Additional Past Alcohol Use History / Comment(s): Quit smoking 35 yrs ago, smo ked for 16 yrs- 2 PPD Past Drug Use History: None Reported - Past Family History Sister(s) Family Medical History: Cancer Father Family Medical History: Cancer Medications and Allergies Home Medications Medication Instructions Recorded Confirmed Type Cetirizine HCl [Zyrtec] 10 mg PO DAILY 04/11/16 11/03/22 History Levothyroxine Sodium [Synthroid] 125 mcg PO DAILY 04/11/16 11/03/22 History Albuterol Nebulized [Ventolin 2.5 mg INHALATION RT-QID PRN 10/31/16 11/03/22 History Nebulized] Montelukast [Singulair] 10 mg PO HS 10/31/16 11/03/22 History Albuterol Sulfate [Albuterol 2 puff INHALATION RT-QID PRN 11/03/22 11/03/22 History Sulfate Hfa] Budesonide/Formoterol Fumarate 1 puff INHALATION RT-DAILY 11/03/22 11/03/22 History [Symbicort 80-4.5 Mcg Inhaler] Ergocalciferol [Vitamin D2 (1250 1,250 mcg PO GONZALEZ 11/03/22 11/03/22 History Mcg = 62026 Iu)] Rosuvastatin [Crestor] 20 mg PO TUFR 11/03/22 11/03/22 History Tiotropium 2.5 Mcg/Puff [Spiriva 2 puff INHALATION RT-DAILY 11/03/22 11/03/22 History Respimat 2.5 Mcg] traMADol HCL 50 mg PO TID PRN 11/03/22 11/03/22 History Allergies Allergy/AdvReac Type Severity Reaction Status Date / Time bee venom protein (honey bee) Allergy Anaphylaxis Verified 11/03/22 07:46 Penicillins Allergy Anaphylaxis Verified 11/03/22 07:46 /Hives Physical Exam Vitals: Vital Signs Temp Pulse Pulse Resp BP BP Pulse Ox 11/03/22 12:00 97.8 F 77 18 123/72 93 L 11/03/22 10:12 97.5 F L 75 17 138/86 92 L 11/03/22 08:12 97.3 F L 76 18 126/70 95 11/03/22 04:12 97.2 F L 11/03/22 03:08 70 20 161/107 94 L Intake and Output 11/03/22 11/03/22 11/03/22 06:59 14:59 22:59 Output Total 700 Balance -700 Output: Urine 700 Other: Voiding Method Indwelling Catheter Weight 83.915 kg 83.915 kg - Constitutional General appearance: average body habitus, mild distress - EENT Eyes: anicteric sclerae, EOMI ENT: hearing grossly normal - Respiratory Respiratory: bilateral: CTA - Cardiovascular Rhythm: regular Heart sounds: normal: S1, S2 Abnormal Heart Sounds: no systolic murmur, no diastolic murmur, no rub, no S3 Gallop, no S4 Gallop, no click, no other leg Peripheral Edema: bilateral: None - Gastrointestinal General gastrointestinal: tenderness Localized gastrointestinal: tender: diffuse - Integumentary Integumentary: normal - Neurologic decreased sensation to lower extremities and lower back, only able to feel slight pressure when palpating, unable to move lower extremities. Strength 0/5 in lower extremities - Musculoskeletal BLE weakness - Psychiatric Psychiatric: A&O x's 3, appropriate affect, intact judgment & insight Results CBC & Chem 7: 11/03/22 03:23 11/03/22 03:23 Labs: Abnormal Lab Results - Last 24 Hours (Table) 11/03/22 11/03/22 Range/Units 03:23 10:40 Sodium 136 L (137-145) mmol/L Glucose 119 H (74-99) mg/dL AST 50 H (14-36) U/L ALT 44 H (4-34) U/L Alkaline Phosphatase 151 H (38-126) U/L Lipase 463 H (23-300) U/L Ur Specific [place] >1.050 H (1.001-1.035) Urine Protein Trace H (Negative) Urine Glucose (UA) Trace H (Negative) Urine Ketones 1+ H (Negative) Chest x-ray: report reviewed CT scan - abdomen: report reviewed CT scan - pelvis: report reviewed Assessment and Plan (1) Lower extremity numbness Current Visit: Yes Status: Acute Priority: High Code(s): R20.0 - ANESTHESIA OF SKIN SNOMED Code(s): 331275054 (2) Lower extremity weakness Current Visit: Yes Status: Acute Priority: High Code(s): R29.898 - OTH SYMPTOMS AND SIGNS INVOLVING THE MUSCULOSKELETAL SYSTEM SNOMED Code(s): 016098376 (3) Metastatic disease Current Visit: Yes Status: Acute Priority: High Code(s): C79.9 - SECONDARY MALIGNANT NEOPLASM OF UNSPECIFIED SITE SNOMED Code(s): 272743046 Plan: Metastatic disease: -Hx of stable pulmonary nodules since 2019, that were under observation. Due to progressing back pain, MRI of the lumbar spine without contrast obtained on 10/07/2022 which noted numerous lesions in the bone marrow in the lower thoracic and lumbar spine along with bony pelvis that were concerning for neoplastic disease. There is also areas of concern at the spinous processes of L1 and S1. There are also numerous hepatic lesions that were potentially concerning for metastatic disease. She had an MRI of the brain on 10/20/2022 that revealed no acute infarction, hemorrhage, or metastasis. It did reveal approximately 4 enhancing calvarial lesions on the left lateral convexity and along the posterior midline with the largest of these measuring 1.8 cm. -CT lumbar spine with contrast ordered 10/31/22, revealed no evidence of fracture of lumbar spine. No aggressive lytic or sclerotic lesions, multilevel DDD. PET scan scheduled for 11/04/2022, will have to reschedule due to hospital admission. Biopsy planned based on findings of PET scan. BLE numbness/weakness: -Progressing weakness and numbness of BLE. Unable to ambulate, with urinary retention -Ortho spine and neuro have been consulted -Plan for MRI of cervical, lumbar and thoracic spine -Pt started on solumedrol 100mg q8hrs, and IV pain meds for pain control -Pending results of MRIs, ortho spine will consider further management here vs transfer to tertiary hospital -If surgical intervention planned will request biopsy of vertebral lesion.
[2022-11-03 20:41] VITALS: BP 120/68; PULSE 89; RESP 15; TEMP 98.4
[2022-11-03] MEDS ORDERED: MONTELUKAST 10 MG TAB PO SCH (21:00)
[2022-11-03] MEDS ORDERED: SENNOSIDES 8.6 MG TAB PO SCH (21:00)
--- NOTE | 2022-11-03 23:48 | XR ---
EXAMINATION TYPE: XR thoracic spine 2V DATE OF EXAM: 11/03/2022 CLINICAL HISTORY: Pain with bilateral lower extremity weakness. History of metastatic disease.. TECHNIQUE: Frontal, lateral, and swimmer's view of thoracic spine are obtained. COMPARISON: None. FINDINGS: Thoracic spine show dextroconvex scoliosis centered in the mid to lower thoracic spine with out evidence of acute fracture or dislocation. Vertebral body heights and disc space heights are pre served. [id number] multilevel anterior and lateral spine is seen. Visualized ribs are intact bilaterally. IMPRESSION: As above.
--- NOTE | 2022-11-04 06:24 | XR ---
EXAMINATION TYPE: XR cervical spine comp DATE OF EXAM: 11/03/2022 TECHNIQUE: Frontal, lateral, oblique, swimmers, and open mouth view of the cervical spine are obtaine d. HISTORY: bilat LE weakness, h/o metastasis COMPARISON: None FINDINGS: The cervical spine is visualized from C1 thru the mid C7 level, some loss of normal cervic al curvature is seen. The pre-vertebral soft tissue appears within normal limits. The C1-C2 articul ation shows asymmetric right-sided narrowing on the open-mouth view. Vertebral body heights are prese rved. There is advanced disc space narrowing with suspected ossific fusion at C5-C6 level. Suboptimal evaluation of the entire C7 vertebra and C7-T1 disc space despite attempted swimmer's view due to os seous overlap. There are multilevel uncovertebral facet degenerative changes causing multilevel bilat eral neural foraminal narrowing greatest at left C3-C4 and right C4-C5 levels on frontal and oblique images. Overlying soft tissue is unremarkable. IMPRESSION: As above. MRI is noted more sensitive
[2022-11-04] MEDS ORDERED: methylPREDNISolone SOD SUCCI 40 MG/ML 1 ML VIAL IV SCH (09:00)
[2022-11-04] MEDS ORDERED: ATORVASTATIN 40 MG TAB PO SCH (09:00)
== END 2022-11-04 00:20 | DRG 552 ==
LOC: EC 03:05 → EEVIPCON 03:05 → 5NMEDONC 07:28
PROVIDERS: ADMIT Family Medicine; ATTEND Family Medicine
DX: M47.16 Other spondylosis with myelopathy, lumbar region (principal); C79.51 Secondary malignant neoplasm of bone; G82.21 Paraplegia, complete; J45.901 Unspecified asthma with (acute) exacerbation; C78.7 Secondary malignant neoplasm of liver and intrahepatic bile duct; R29.2 Abnormal reflex; E89.0 Postprocedural hypothyroidism; K31.84 Gastroparesis; I45.10 Unspecified right bundle-branch block; I49.1 Atrial premature depolarization; M21.372 Foot drop, left foot; K59.00 Constipation, unspecified; M43.16 Spondylolisthesis, lumbar region; M25.78 Osteophyte, vertebrae; E78.5 Hyperlipidemia, unspecified; R91.8 Other nonspecific abnormal finding of lung field; R33.8 Other retention of urine; M48.061 Spinal stenosis, lumbar region without neurogenic claudication; Z96.642 Presence of left artificial hip joint; Z85.850 Personal history of malignant neoplasm of thyroid; Z87.891 Personal history of nicotine dependence; Z88.0 Allergy status to penicillin; Z91.030 Bee allergy status; Z79.51 Long term (current) use of inhaled steroids; Z79.890 Hormone replacement therapy; Z79.899 Other long term (current) drug therapy; Z80.9 Family history of malignant neoplasm, unspecified
CPT/HCPCS: 36415; 71045; 72050; 72070; 74018; 74177; 80053; 81003; 83690; 83735; 84484; 85025; 85610; 85730; 87635; 93005; 96372; 96374; 96375; 96376; 99285